=== PATIENT | female | born 1970 | race Caucasian/White ===

== ENCOUNTER 2017-10-12 22:16 | Emergency (ER) | payer OTHER ==
[~2017-10-12] VITALS: Ht 165.1 cm; Wt 72.6 kg
[2017-10-12] MEDS: IV NS 0.9% 1,000 ML BAG IV ONE (22:30)
--- NOTE | 2017-10-12 22:30 | NUR ---
PATIENT AGITATED, REFUSING IV INSERTION.
--- NOTE | 2017-10-12 22:30 | NUR ---
PATIENT BIB. PER PATIENT'S DAUGHTER, PATIENT TOOK 6 ALEVE IN ATTEMPT TO HURT HERSELF. PATIENT VERBALLY ABUSIVE TO STAFF, REFUSES TO ANSWER QUESTIONS
[2017-10-12] MEDS ORDERED: LORAZEPAM INJ 2 MG/ML VIAL ONE (22:32)
[2017-10-12] MEDS: LORAZEPAM INJ 2 MG/ML VIAL IM ONE (22:38)
--- NOTE | 2017-10-12 22:41 | NUR ---
PATIENT MEDICATED ORDERED
[2017-10-12 23:06] LABS: APPEARANCE,URINE CLEAR (CLEAR); BILIRUBIN,URINE NEGATIVE (NEGATIVE); BLOOD, URINE NEGATIVE Ery/uL (NEGATIVE); COLOR,URINE YELLOW (YELLOW); KETONES,URINE NEGATIVE (NEGATIVE); LEUKOCYTE ESTERASE ,URINE NEGATIVE (NEGATIVE); NITRITE, URINE NEGATIVE (NEGATIVE); PROTEIN,URINE NEGATIVE (NEGATIVE); UGLUCOSE NEGATIVE (NEGATIVE); UROBILINOGEN,URINE 0.2 EU/dL (0.2)
[2017-10-12 23:16] LABS: BASOPHILS % (AUTO) 0.8 % (0.0-2.0); CALCIUM, SERUM 7.8 mg/dL (8.5-10.1); CREATININE 0.5 mg/dL (0.6-1.3); EOSINOPHILS % (AUTO) 0.9 % (0.0-6.0); HEMATOCRIT 30 % (33-45); HEMOGLOBIN 9.6 g/dL (11.5-14.8); LYMPHOCYTES # (AUTO) 2.4 /CMM (0.8-4.8); MEAN CORPUSCULAR HEMOGLOBIN 26 PG (26.0-33.0); MEAN CORPUSCULAR HGB CONC 32 g/dl (31.0-36.0); MEAN CORPUSCULAR VOLUME 81 fL (82-100); MONOCYTES # (AUTO) 0.3 /CMM (0.1-1.30); MONOCYTES % (AUTO) 7.2 % (2.0-12.0); NEUTROPHILS # (AUTO) 1.4 /CMM (1.8-8.9); NEUTROPHILS % (AUTO) 33.1 % (43.0-81.0); PLATELET COUNT (AUTO) 442 /CMM (150-450); RDW COEFFICIENT OF VARIATION 19.1 (11.5-15.0); RED BLOOD CELL COUNT(AUTO) 3.69 MIL/uL (4.0-5.2); WHITE BLOOD COUNT (AUTO) 4.1 K/uL (4.3-11.0)
[2017-10-12 23:22] LABS: ALBUMIN 3.2 g/dL (3.4-5.0); BILIRUBIN,TOTAL 0.2 mg/dL (0.2-1.0); SALICYLATE 3.3 mg/dL (2.8-20.0); TOTAL PROTEIN, SERUM 6.7 g/dL (6.4-8.2)
[2017-10-13] MEDS: LORAZEPAM INJ 2 MG/ML VIAL IM ONE (00:52)
[2017-10-13] MEDS: HALOPERIDOL LACTATE INJ 5 MG/ML VIAL IM ONE (00:52)
--- NOTE | 2017-10-13 01:16 | NUR ---
PATIENT'S AT BEDSIDE TO FINISH SAW OPERATOR PATIENT. ALL DISCHARGE PAPERWORK DISCUSSED AND SIGNED.
[2017-10-13 01:20] VITALS: BP 149/88
== END 2017-10-13 01:20 | disposition home or self-care (01) ==
LOC: ER 22:18
DX: T39.311A Poisoning by propionic acid derivatives, accidental (unintentional), initial encounter (principal); F31.9 Bipolar disorder, unspecified; Y92.89 Other specified places as the place of occurrence of the external cause
CPT/HCPCS: 36415; 80048; 80076; 80305; 80329; 81001; 84703; 85025; 96372; 99284; A4606; G0480 ×2; J2060; Z7610; 81000-TC

== ENCOUNTER 2018-08-27 13:24 | Emergency (ER) | payer OTHER ==
[~2018-08-27] VITALS: Ht 167.6 cm; Wt 109.8 kg
--- NOTE | 2018-08-27 13:24 | NUR ---
PT CLINTON FROM THE BUS FOR ETOH INTOX; PT AAOX4, -SOB, NAD NOTED, PT TO BED 6, PENDING MD DAVIS
--- NOTE | 2018-08-27 13:42 | NUR ---
FOOD TRAY ORDERED, DR LUCAS AWARE,SECURITY CALLED TO WAND PATIENT
[2018-08-27 14:02] LABS: BASOPHILS % (AUTO) 0.9 % (0.0-2.0); EOSINOPHILS % (AUTO) 0.7 % (0.0-6.0); HEMATOCRIT 36 % (33-45); HEMOGLOBIN 11.7 g/dL (11.5-14.8); LYMPHOCYTES # (AUTO) 2.7 /CMM (0.8-4.8); LYMPHOCYTES % (AUTO) 56.2 % (20.0-44.0); MEAN CORPUSCULAR HGB CONC 33 g/dl (31.0-36.0); MEAN CORPUSCULAR VOLUME 84 fL (82-100); MONOCYTES # (AUTO) 0.3 /CMM (0.1-1.30); MONOCYTES % (AUTO) 6.8 % (2.0-12.0); NEUTROPHILS # (AUTO) 1.7 /CMM (1.8-8.9); NEUTROPHILS % (AUTO) 35.4 % (43.0-81.0); PLATELET COUNT (AUTO) 316 /CMM (150-450); RED BLOOD CELL COUNT(AUTO) 4.23 MIL/uL (4.0-5.2); WHITE BLOOD COUNT (AUTO) 4.8 K/uL (4.3-11.0)
[2018-08-27 14:09] LABS: CREATININE 0.6 mg/dL (0.6-1.3); POTASSIUM 4.2 mmol/L (3.5-5.1)
[2018-08-27] MEDS ORDERED: GABAPENTIN 100 MG CAPSULE ONE (14:10)
[2018-08-27] MEDS ORDERED: ACETAMINOPHEN ES 500 MG TABLET ONE (14:10)
[2018-08-27] MEDS: GABAPENTIN 100 MG CAPSULE PO ONE (14:26)
[2018-08-27] MEDS: ACETAMINOPHEN ES 500 MG TABLET PO ONE (14:26)
[2018-08-27] MEDS: IV NS 0.9% 500 ML BAG IV ONE (14:26)
--- NOTE | 2018-08-27 17:50 | NUR ---
DR. LUCAS AT BEDSIDE TO REEVALUATE THE PATIENT SHE IS ALERT AND ORIENTED X 4, AMBULATORY WITH STEADY GAIT. SHE IS REQUESTING TO GO HOME VIA BUS
[2018-08-27 18:36] VITALS: BP 141/94
--- NOTE | 2018-08-27 18:43 | NUR ---
IV removed. Catheter intact and site benign. Pressure and 4x4 applied to site. No bleeding noted.
--- NOTE | 2018-08-27 18:48 | NUR ---
UNABLE TO DEPART PATIENT FROM [facility] AT THIS TIME
== END 2018-08-27 18:48 | disposition home or self-care (01) ==
LOC: ER 13:26
DX: F10.129 Alcohol abuse with intoxication, unspecified (principal); R41.82 Altered mental status, unspecified; I10 Essential (primary) hypertension; F31.9 Bipolar disorder, unspecified; Z60.2 Problems related to living alone; Y90.9 Presence of alcohol in blood, level not specified
CPT/HCPCS: 36415; 70450; 80048; 85025; 96360; 99284; J7040

== ENCOUNTER 2018-11-03 17:22 | Emergency (ER) | payer OTHER ==
[~2018-11-03] VITALS: Ht 170.2 cm; Wt 114.3 kg
[2018-11-03] MEDS ORDERED: GABAPENTIN 300 MG CAPSULE ONE (18:52)
[2018-11-03] MEDS: GABAPENTIN 100 MG CAPSULE PO ONE (19:00)
--- NOTE | 2018-11-03 19:05 | NUR ---
pt resting in gurney. no signs of distress noted. pt vital signs stable. will cont to monitor pt.
--- NOTE | 2018-11-03 22:09 | NUR ---
PT AMBULATORY TO THE BATHROOM WITH STEADY GAIT NOTED. PT AAOX4 NO ACUTE DISTRESS NOTED, RESP EVEN AND UNLABORED.
--- NOTE | 2018-11-03 22:31 | NUR ---
Patient discharged to home in stable condition. Written and verbal after care instructions given. Patient verbalizes understanding of instruction. ambulatory with a steady gait noted. pt aaox4 no acute distress noted, resp even and unlabored. advice pt not to drive or operate any machinery due to alcohol intoxication
[2018-11-03 22:34] VITALS: BP 124/73
== END 2018-11-03 22:36 | disposition home or self-care (01) ==
LOC: ER 17:24
DX: M79.605 Pain in left leg (principal); M79.604 Pain in right leg; I10 Essential (primary) hypertension; F31.9 Bipolar disorder, unspecified; F10.10 Alcohol abuse, uncomplicated; E66.9 Obesity, unspecified; Y90.9 Presence of alcohol in blood, level not specified; Z60.2 Problems related to living alone

== ENCOUNTER 2018-12-17 12:37 | Emergency (ER) | payer OTHER ==
[~2018-12-17] VITALS: Ht 167.6 cm; Wt 114.8 kg
[2018-12-17 12:47] VITALS: BP 144/78
--- NOTE | 2018-12-17 13:22 | NUR ---
Patient discharged to home in stable condition. Written and verbal after care instructions given. Patient verbalizes understanding of instruction.
== END 2018-12-17 13:23 | disposition home or self-care (01) ==
LOC: ER 12:37
DX: Z76.0 Encounter for issue of repeat prescription (principal); F31.9 Bipolar disorder, unspecified; I10 Essential (primary) hypertension; Z98.890 Other specified postprocedural states; Z60.2 Problems related to living alone

== ENCOUNTER 2019-11-12 11:48 | Emergency (ER) | payer OTHER ==
[~2019-11-12] VITALS: Ht 170.2 cm; Wt 136.1 kg
--- NOTE | 2019-11-12 12:10 | NUR ---
"Abdominal Pain-mid epigastric. +Nausea/vomiting" Patient a/ox4, breathing even and unlabored, no sob noted, changed into gown, attached to the cardiac cath lab technologist. Needs attended.
[2019-11-12] MEDS ORDERED: ONDANSETRON HCL/PF 4 MG/2 ML VIAL ONE (12:20)
[2019-11-12] MEDS ORDERED: LORAZEPAM INJ 2 MG/ML VIAL ONE (12:21)
[2019-11-12] MEDS ORDERED: ONDANSETRON HCL/PF 4 MG/2 ML VIAL IVP ONE (12:30)
[2019-11-12] MEDS ORDERED: LORAZEPAM INJ 2 MG/ML VIAL IV ONE (12:30)
[2019-11-12 12:33] LABS: BASOPHILS % (AUTO) 0.7 % (0.0-2.0); EOSINOPHILS % (AUTO) 0.1 % (0.0-6.0); HEMATOCRIT 40 % (33-45); HEMOGLOBIN 13.1 g/dL (11.5-14.8); LYMPHOCYTES # (AUTO) 1.1 /CMM (0.8-4.8); LYMPHOCYTES % (AUTO) 19.2 % (20.0-44.0); MEAN CORPUSCULAR HGB CONC 33 g/dl (31.0-36.0); MEAN CORPUSCULAR VOLUME 96 fL (82-100); MONOCYTES # (AUTO) 0.4 /CMM (0.1-1.30); MONOCYTES % (AUTO) 6.1 % (2.0-12.0); NEUTROPHILS # (AUTO) 4.3 /CMM (1.8-8.9); NEUTROPHILS % (AUTO) 73.9 % (43.0-81.0); PLATELET COUNT (AUTO) 186 /CMM (150-450); RED BLOOD CELL COUNT(AUTO) 4.21 MIL/uL (4.0-5.2); WHITE BLOOD COUNT (AUTO) 5.8 K/uL (4.3-11.0)
--- NOTE | 2019-11-12 12:45 | NUR ---
PATIENT RESTING, NO DISTRESS NOTED. VITALS STABLE.
[2019-11-12 12:55] LABS: ALANINE AMINOTRANSFERASE 95 U/L (12-78); ALBUMIN 3.2 g/dL (3.4-5.0); ALKALINE PHOSPHATASE 152 U/L (46-116); ASPARTATE AMINOTRANSFERASE 203 U/L (15-37); BILIRUBIN,DIRECT 0.2 mg/dL (0.0-0.2); BILIRUBIN,TOTAL 0.6 mg/dL (0.2-1.0); CALCIUM, SERUM 7.7 mg/dL (8.5-10.1); CARBON DIOXIDE 23 mmol/L (21-32); CHLORIDE 96 mmol/L (98-107); CREATININE 0.8 mg/dL (0.6-1.3); GLUCOSE 129 mg/dL (74-106); LIPASE 77 U/L (73-393); POTASSIUM 3.7 mmol/L (3.5-5.1); SODIUM SERUM 134 mmol/L (136-145); TOTAL PROTEIN, SERUM 7.3 g/dL (6.4-8.2); UREA NITROGEN, BLOOD 8 mg/dL (7-18)
--- NOTE | 2019-11-12 13:39 | NUR ---
Patient a/ox4, breathing even and unlabored, no sob noted, IV removed. Catheter intact and site benign. Pressure and 4x4 applied to site. No bleeding noted. Patient discharged to home in stable condition. Written and verbal after care instructions given. Patient verbalizes understanding of instruction.
[2019-11-12 13:40] VITALS: BP 134/96
== END 2019-11-12 13:40 | disposition home or self-care (01) ==
LOC: ER 12:03
DX: R11.2 Nausea with vomiting, unspecified (principal); F41.9 Anxiety disorder, unspecified; R10.13 Epigastric pain; I10 Essential (primary) hypertension; F31.9 Bipolar disorder, unspecified; Z98.890 Other specified postprocedural states; Z60.2 Problems related to living alone
CPT/HCPCS: 36415; 80048; 80076; 83690; 84484; 85025; 93005; 96374; 96375; 99284; J2060; J2405

== ENCOUNTER 2020-01-02 10:43 | Emergency (ER) | payer OTHER ==
[~2020-01-02] VITALS: Ht 167.6 cm; Wt 135.2 kg
--- NOTE | 2020-01-02 10:43 | NUR ---
PT BIBRA 909 FROM [facility] C/O N/V AND ALCOHOL WITHDRAWAL. PT IS AAOX4, NOT IN RESPIRATORY DISTRESS, V/S STABLE, KEPT RESTED AND COMFORTABLE. WILL CONTINUE TO MONITOR.
--- NOTE | 2020-01-02 10:54 | NUR ---
SEEN AND EXAMINED BY .
[2020-01-02] MEDS ORDERED: LORAZEPAM 1 MG TABLET PO ONE (11:00)
[2020-01-02] MEDS ORDERED: LORAZEPAM 1 MG TABLET ONE (11:05)
[2020-01-02 11:33] LABS: EOSINOPHILS % (AUTO) 0.2 % (0.0-6.0); HEMATOCRIT 41 % (33-45); HEMOGLOBIN 13.6 g/dL (11.5-14.8); LYMPHOCYTES # (AUTO) 1.7 /CMM (0.8-4.8); LYMPHOCYTES % (AUTO) 34.3 % (20.0-44.0); MEAN CORPUSCULAR HGB CONC 33 g/dl (31.0-36.0); MEAN CORPUSCULAR VOLUME 112 fL (82-100); MONOCYTES # (AUTO) 0.3 /CMM (0.1-1.30); MONOCYTES % (AUTO) 5.1 % (2.0-12.0); NEUTROPHILS # (AUTO) 2.9 /CMM (1.8-8.9); NEUTROPHILS % (AUTO) 59.4 % (43.0-81.0); PLATELET COUNT (AUTO) 345 /CMM (150-450); RED BLOOD CELL COUNT(AUTO) 3.63 MIL/uL (4.0-5.2); WHITE BLOOD COUNT (AUTO) 4.9 K/uL (4.3-11.0)
--- NOTE | 2020-01-02 11:39 | NUR ---
URINE SPECIMEN COLLECTED AND SENT TO LAB.
[2020-01-02 11:41] LABS: CALCIUM, SERUM 8.7 mg/dL (8.5-10.1); CARBON DIOXIDE 24 mmol/L (21-32); CHLORIDE 99 mmol/L (98-107); CREATININE 0.8 mg/dL (0.6-1.3); GLUCOSE 102 mg/dL (74-106); POTASSIUM 3.4 mmol/L (3.5-5.1); SODIUM SERUM 135 mmol/L (136-145); UREA NITROGEN, BLOOD 4 mg/dL (7-18)
[2020-01-02 11:46] LABS: ALANINE AMINOTRANSFERASE 92 U/L (12-78); ALBUMIN 3.2 g/dL (3.4-5.0); ALCOHOL, BLOOD 137 mg/dL (0-0); ALKALINE PHOSPHATASE 146 U/L (46-116); ASPARTATE AMINOTRANSFERASE 201 U/L (15-37); BILIRUBIN,DIRECT 2.2 mg/dL (0.0-0.2); BILIRUBIN,TOTAL 2.8 mg/dL (0.2-1.0); TOTAL PROTEIN, SERUM 7.6 g/dL (6.4-8.2)
[2020-01-02 11:47] LABS: ACETAMINOPHEN 0 ug/ml (10-30)
[2020-01-02 12:01] LABS: APPEARANCE,URINE Clear (CLEAR); BILIRUBIN,URINE LARGE (NEGATIVE); BLOOD, URINE Negative Ery/uL (NEGATIVE); COLOR,URINE Yellow (YELLOW); KETONES,URINE 40 (NEGATIVE); LEUKOCYTE ESTERASE ,URINE Negative (NEGATIVE); NITRITE, URINE Negative (NEGATIVE); PROTEIN,URINE 30 mg/dl (NEGATIVE); UGLUCOSE Negative (NEGATIVE)
[2020-01-02 12:12] LABS: BAND % (MANUAL) 8 % (0.0-5.0); LYMPHOCYTES % (MANUAL) 28 % (16-48); MONOCYTES % (MANUAL) 8 % (0-11.0); NEUTROPHILS % (MANUAL) 56 (42-76)
--- NOTE | 2020-01-02 12:33 | NUR ---
Patient discharged to home in stable condition. Written and verbal after care instructions given. Patient verbalizes understanding of instruction. Pt ambulatory with a steady gait. Pt signed homeless waiver, provided with food and tap card.
[2020-01-02 12:35] VITALS: BP 143/89
[2020-01-02 12:55] LABS: RBC,URINE 0-2 /HPF (0-2); WBC,URINE 0-2 /HPF (0-3)
[2020-01-02 12:56] LABS: BACTERIA,URINE Few /HPF (None Seen); SQUAMOUS EPITHELIAL CELL,UR Moderate /HPF (None Seen)
== END 2020-01-02 12:35 | disposition home or self-care (01) ==
LOC: ER 10:50
DX: F10.20 Alcohol dependence, uncomplicated (principal); R11.2 Nausea with vomiting, unspecified; I10 Essential (primary) hypertension; F31.9 Bipolar disorder, unspecified; Z98.890 Other specified postprocedural states; Z60.2 Problems related to living alone; Y90.6 Blood alcohol level of 120-199 mg/100 ml
CPT/HCPCS: 36415; 80048-TC; 80076-TC; 81000-TC; 85025-TC; G0480

== ENCOUNTER 2020-01-14 09:39 | Emergency (ER) | payer OTHER ==
[~2020-01-14] VITALS: Ht 167.6 cm; Wt 135.2 kg
--- NOTE | 2020-01-14 09:45 | NUR ---
PT BIB SELF C/O ABD PAIN 12/09 STARTED 2 DAYS AGO PER PT. VS CHECKED. AWAITING MD DAVIS.
--- NOTE | 2020-01-14 09:50 | NUR ---
URINE COLLECTED SENT TO LAB
[2020-01-14] MEDS ORDERED: ONDANSETRON HCL/PF 4 MG/2 ML VIAL IVP ONE (10:00)
[2020-01-14] MEDS ORDERED: MORPHINE SULFATE INJ 2 MG/ML DISP.SYRIN IV ONE (10:00)
[2020-01-14 10:07] LABS: BILIRUBIN,URINE LARGE (NEGATIVE); BLOOD, URINE Large Ery/uL (NEGATIVE); COLOR,URINE DARK YELLOW (YELLOW); LEUKOCYTE ESTERASE ,URINE Negative (NEGATIVE); NITRITE, URINE Negative (NEGATIVE); PROTEIN,URINE 30 mg/dl (NEGATIVE); UGLUCOSE Negative (NEGATIVE)
[2020-01-14 10:19] LABS: BACTERIA,URINE Few /HPF (None Seen); RBC,URINE 51-80 /HPF (0-2); SQUAMOUS EPITHELIAL CELL,UR Few /HPF (None Seen); WBC,URINE 0-2 /HPF (0-3)
[2020-01-14 10:35] LABS: BASOPHILS % (AUTO) 0.9 % (0.0-2.0); EOSINOPHILS % (AUTO) 0.3 % (0.0-6.0); HEMATOCRIT 39 % (33-45); HEMOGLOBIN 12.9 g/dL (11.5-14.8); LYMPHOCYTES # (AUTO) 1.2 /CMM (0.8-4.8); LYMPHOCYTES % (AUTO) 27.4 % (20.0-44.0); MEAN CORPUSCULAR HGB CONC 33 g/dl (31.0-36.0); MEAN CORPUSCULAR VOLUME 116 fL (82-100); MONOCYTES # (AUTO) 0.3 /CMM (0.1-1.30); MONOCYTES % (AUTO) 7.7 % (2.0-12.0); NEUTROPHILS # (AUTO) 2.8 /CMM (1.8-8.9); NEUTROPHILS % (AUTO) 63.7 % (43.0-81.0); PLATELET COUNT (AUTO) 329 /CMM (150-450); WHITE BLOOD COUNT (AUTO) 4.4 K/uL (4.3-11.0)
[2020-01-14] MEDS ORDERED: ONDANSETRON HCL/PF 4 MG/2 ML VIAL ONE (10:40)
[2020-01-14] MEDS ORDERED: MORPHINE SULFATE INJ 4 MG/ML DISP.SYRIN ONE (10:40)
[2020-01-14 10:47] LABS: CALCIUM, SERUM 8.6 mg/dL (8.5-10.1); CREATININE 0.6 mg/dL (0.6-1.3); POTASSIUM 3.8 mmol/L (3.5-5.1)
[2020-01-14 10:53] LABS: ALBUMIN 2.7 g/dL (3.4-5.0); BILIRUBIN,DIRECT 4.7 mg/dL (0.0-0.2); BILIRUBIN,TOTAL 5.2 mg/dL (0.2-1.0); TOTAL PROTEIN, SERUM 7.3 g/dL (6.4-8.2)
[2020-01-14] MEDS ORDERED: IOHEXOL-300 100 ML VIAL IV ONE (11:09)
[2020-01-14] MEDS ORDERED: IV NS 0.9% 250 ML IV ONE (11:09)
[2020-01-14] MEDS ORDERED: CT SWABBABLE VALVE TRANS SET 1 EA INFUS.SET MC ONE (11:09)
[2020-01-14] MEDS ORDERED: LORAZEPAM INJ 2 MG/ML VIAL ONE (12:20)
--- NOTE | 2020-01-14 12:26 | NUR ---
CALLED [id number] #[id number]
[2020-01-14] MEDS ORDERED: LORAZEPAM INJ 2 MG/ML VIAL IV ONE (12:30)
--- NOTE | 2020-01-14 12:46 | NUR ---
[facility] 1330[facility]
--- NOTE | 2020-01-14 14:05 | NUR ---
CALLED [id number] NEW ETA IS 15 MINS PER ROSA
--- NOTE | 2020-01-14 14:22 | NUR ---
STILL WAITING FOR AMBULANCE, STATES THAT THEYRE RUNNING LATE
--- NOTE | 2020-01-14 15:06 | NUR ---
CALLED [id number]. THEY SHOULD BE PULLING UP NOW
--- NOTE | 2020-01-14 15:18 | NUR ---
Patient discharged to home in stable condition. Written and verbal after care instructions given. Patient verbalizes understanding of instruction. report given to ic designer custom. IV removed. Catheter intact and site benign. Pressure and 4x4 applied to site. No bleeding noted.
[2020-01-14 15:20] VITALS: BP 130/78
== END 2020-01-14 15:20 | disposition home or self-care (01) ==
LOC: ER 09:45
DX: R10.84 Generalized abdominal pain (principal); I10 Essential (primary) hypertension; E66.8 Other obesity; Z68.42 Body mass index [BMI] 45.0-49.9, adult; Z98.84 Bariatric surgery status; Z60.2 Problems related to living alone
CPT/HCPCS: 36415; 74177; 80048; 80076; 81001; 83690; 84703; 85025; 96374; 96375; 99285; J2060; J2270; J2405; J7050; Q9967

== ENCOUNTER 2020-04-30 10:41 | Inpatient (IN) | payer OTHER ==
[~2020-04-30] VITALS: Ht 167.6 cm; Wt 136.5 kg
--- NOTE | 2020-04-30 11:00 | NUR ---
[id number], from retirement, c/o right rib pain x 2 weeks, and diarrhea x 2 days. Takes advil but not helping. On room air, breathing evenly and unlabored, connected to the monitor and pulse ox. kept comfortable, will continue to monitor accordingly.
--- NOTE | 2020-04-30 11:01 | NUR ---
Move sheet submitted and called for bed.
[2020-04-30 11:13] LABS: EOSINOPHILS % (AUTO) 0.2 % (0.0-6.0); HEMOGLOBIN 10.2 g/dL (11.5-14.8); LYMPHOCYTES # (AUTO) 0.7 /CMM (0.8-4.8); MONOCYTES % (AUTO) 10.4 % (2.0-12.0)
[2020-04-30 11:16] LABS: BASOPHILS % (AUTO) 0.7 % (0.0-2.0); HEMATOCRIT 31 % (33-45); LYMPHOCYTES % (AUTO) 12.5 % (20.0-44.0); MEAN CORPUSCULAR HGB CONC 33 g/dl (31.0-36.0); MEAN CORPUSCULAR VOLUME 120 fL (82-100); MONOCYTES # (AUTO) 0.6 /CMM (0.1-1.30); NEUTROPHILS % (AUTO) 76.2 % (43.0-81.0); PLATELET COUNT (AUTO) 256 /CMM (150-450); RED BLOOD CELL COUNT(AUTO) 2.56 MIL/uL (4.0-5.2); WHITE BLOOD COUNT (AUTO) 5.3 K/uL (4.3-11.0)
--- NOTE | 2020-04-30 11:20 | NUR ---
US AT BEDSIDE
[2020-04-30 11:28] LABS: SERUM AMMONIA 47 umol/L (11-32)
[2020-04-30 11:40] LABS: ALANINE AMINOTRANSFERASE 70 U/L (12-78); ALBUMIN 1.9 g/dL (3.4-5.0); ALKALINE PHOSPHATASE 216 U/L (46-116); ASPARTATE AMINOTRANSFERASE 351 U/L (15-37); BILIRUBIN,DIRECT 30.1 mg/dL (0.0-0.2); BILIRUBIN,TOTAL 34.5 mg/dL (0.2-1.0); CALCIUM, SERUM 7.6 mg/dL (8.5-10.1); CARBON DIOXIDE 21 mmol/L (21-32); CHLORIDE 99 mmol/L (98-107); CREATININE 0.9 mg/dL (0.6-1.3); GLUCOSE 98 mg/dL (74-106); LIPASE 1159 U/L (73-393); SODIUM SERUM 137 mmol/L (136-145); TOTAL PROTEIN, SERUM 5.5 g/dL (6.4-8.2); UREA NITROGEN, BLOOD 20 mg/dL (7-18)
[2020-04-30 11:43] LABS: POTASSIUM 2.8 mmol/L (3.5-5.1)
[2020-04-30] MEDS ORDERED: LAMO100T2 PO (11:47)
[2020-04-30] MEDS ORDERED: TRAM50TA2 PO (11:47)
[2020-04-30] MEDS ORDERED: SERT25TA PO (11:47)
[2020-04-30] MEDS ORDERED: ATEN25TA PO (11:47)
[2020-04-30] MEDS ORDERED: TRAZ-182 PO (11:47)
[2020-04-30] MEDS ORDERED: GABA600T12 PO (11:47)
[2020-04-30] MEDS ORDERED: LORA-259 PO (11:47)
--- NOTE | 2020-04-30 11:49 | NUR ---
got bed 313-1
[2020-04-30] MEDS ORDERED: IV D5/ 0.9% NACL 1,000 ML IV ONE (12:00)
[2020-04-30] MEDS ORDERED: POTASSIUM CL. PREMIX PERIPHER. 50 ML ONE (12:02)
[2020-04-30] MEDS ORDERED: POTASSIUM CL. PREMIX PERIPHER. 150 ML ONE (12:03)
[2020-04-30] MEDS: POTASSIUM CL. PREMIX PERIPHER. 50 ML IV SCH ×4 (12:12→15:29)
--- NOTE | 2020-04-30 12:13 | NUR ---
PT TO RADIOLOGY
--- NOTE | 2020-04-30 12:30 | NUR ---
IV D5ND 100ML @ 75MLHR HOUR STRATED PER MD ORDERED. IV SITE L AC 18G ENDTIME CONTINUOUS INFUSION. UNABLE TO MARILEE ON Play[employer].
--- NOTE | 2020-04-30 13:52 | NUR ---
lab called pt covid result negative (-).
--- NOTE | 2020-04-30 14:07 | NUR ---
REPORT GIVEN TO RUBEN TENORIO FOR MARIAELENA
--- NOTE | 2020-04-30 14:22 | NUR ---
PT TRANSPOERTED TO UNIT ON GURNEY WITH EMT AND RN AT BEDSIDE W/ ACLS PROTOCOL. NAD NOTED DURING TRANSPORT
[2020-04-30] MEDS ORDERED: ONDANSETRON HCL/PF 4 MG/2 ML VIAL IVP PRN (14:30)
[2020-04-30] MEDS ORDERED: MAGNESIUM HYDROXIDE 30 ML UDC PO PRN (14:30)
[2020-04-30] MEDS ORDERED: MAG HYDROX/AL HYDROX/SIMETH 30 ML UDC PO PRN (14:30)
[2020-04-30] MEDS ORDERED: Z GUARD REMEDY 2 OZ OINT TP PRN (14:30)
[2020-04-30] MEDS ORDERED: ZOLPIDEM TARTRATE 5 MG TABLET PO PRN (14:30)
[2020-04-30] MEDS ORDERED: ACETAMINOPHEN 325 MG TABLET PO PRN (14:30)
--- NOTE | 2020-04-30 14:30 | NUR ---
CUMULATIVE EFFECTS ANALYSTDEPLOYMENT ENGINEER NOTES RECEIVED PT FROM ED TRANSPORTED BY [facility] TO UNIT WITH ACLS PROTOCOL IN PLACE AT THIS TIME. AOX4, ABLE TO MAKE NEEDS KNOWN. LUNGS ARE CLEAR TO AUSCULTATION, ABDOMEN IS SOFT, NON TENDER, ACTIVE KVNG SOUNDS AUSCULTATED IN ALL FOUR QUADRANTS, PULSES ARE PRESENT BILATERALLY, GOOD CIRCULATION NOTED, CAPILLARY REFILL 3 SECONDS, SKIN IS WARM TO TOUCH, SKIN IS INTACT WITH BRUISES NOTED IN LEFT/RIGHT ARM, LEFT SIDE BACK AND ABDOMEN. PICTURES OF BRUISES TAKEN AND FILED IN CHART. BELONGINGS ACCOUNTED FOR, SIGNED BY PT, TELECASTING ENGINEER/NURSE AND LEFT WITH PT AT BEDSIDE PER PT REQUEST. IV ACCESS NOTED IN RAC G#18 AND LEFT WRIST, BOTH INTACT, PATENT AND FLUSHING WELL. PT ON EXTERNAL TELE WAREHOUSEMAN READING SR 89. PT REORIENT TO THE ROOM AND TO USE CALL LIGHT TO ASK FOR ASSISTANCE. PT VERBALIZE UNDERSTANDING. ASPIRATIONS, SEIZURE AND SAFETY PRECAUTIONS IN PLACE AND MAINTAINED AT ALL TIMES. BED IN LOWEST LOCKED POSITION, SIDE RAILS UP AND PADDED, HOB ELEVATED, TABLE AND CALL LIGHT WITHIN REACH. WILL CONTINUE TO MONITOR
[2020-04-30 15:58] LABS: BAND % (MANUAL) 4 % (0.0-5.0); EOSINOPHILS % (MANUAL) 1 % (0-4); LYMPHOCYTES % (MANUAL) 19 % (16-48); MONOCYTES % (MANUAL) 13 % (0-11.0); NEUTROPHILS % (MANUAL) 61 (42-76); REACTIVE LYMPHOCYTES 2 % (0-0)
[2020-04-30 16:00] VITALS: BP 104/52
[2020-04-30] MEDS ORDERED: LORAZEPAM INJ 2 MG/ML VIAL IV PRN (16:00)
[2020-04-30] MEDS: AZITHROMYCIN 500 MG in IV D5W 250 ML IV SCH (16:59)
[2020-04-30] MEDS ORDERED: CEFTRIAXONE 1 G in IV D5W 50 ML IV SCH (17:00)
[2020-04-30] MEDS: HYDROCODONE/APAP 5/325MG TABLET PO PRN ×2 (17:17→22:02)
--- NOTE | 2020-04-30 17:17 | NUR ---
PT C/O OF ACHING RIGHT RIB PAIN ON 09/08. VS WNL. PT NOTED RESTLESS, MOANING AND IRRITABLE. PER PT REQUEST NORCO 5-325MG PO Q4H PRN WAS ADMINISTERED AT THIS TIME. WILL CONTINUE TO MONITOR
[2020-04-30] MEDS ORDERED: INFLUENZA VACCINE 2020-21 0.5 ML DISP.SYRIN IM ONE (17:30)
--- NOTE | 2020-04-30 17:32 | NUR ---
FLU VACCINE ADMINISTERED IN LEFT DELTOID AT THIS TIME. PT TOLERATED WELL. WILL CONTINUE TO MONITOR
--- NOTE | 2020-04-30 18:32 | NUR ---
ISRAEL WOOD, PT'S DAUGHTER CALLED AND SPOKE WITH PT. PT REQUESTED TO ADD ISRAEL RESPONSIBLE TEMPLATE CLERK. WILL CONTINUE WITH PLAN OF CARE
--- NOTE | 2020-04-30 19:43 | NUR ---
RN CLOSING NOTES PT AWAKE IN BED COMFORTABLY AT THIS TIME. PT REMAINED STABLE THROUGHOUT SHIFT. ALL CARE, NEED, MEDICATIONS AND TREATMENT ADMINISTERED ANTICIPATED PER ORDER.PAIN MANAGEMENT ADMINISTERED. ASPIRATION, SEIZURE AND SAFETY PRECAUTION IN PLACE AND MAINTAINED AT ALL TIMES. BED IN LOWEST LOCKED POSITION, HOB ELEVATED, SIDE RAILS UP AND PADDED, CALL LIGHT AND TABLE WITHIN REACH. ENDORSED TO RUBEN ERVIN RADIO REPAIRER DOMESTIC FOR MARIAELENA
[2020-04-30 20:00] VITALS: BP 108/56
[2020-04-30] MEDS: MEROPENEM 500 MG in IV NS 0.9% 50 ML IV SCH (21:49)
--- NOTE | 2020-04-30 22:00 | NUR ---
RN OPENING NOTES RECEIVED PT IN BED. AO X4 PT ON ROOM AIR TOLERATING WELL. NO RESP DISTRESS NO SOB NOTED. PT ON TELE MONITOR NSR HR 84 AT THIS TIME. IV SITE FLUSHED. NO S/S OF INFILTRATION NOTED. PT IS YELLOW IN COLOR, EYES JAUNDICE. NEEDS ATTENDED. SAFETY MEASURES IN PLACE FOR R/O COVID SEIZURE ASPIRATION PRECAUTION. PT HOB ELEVATED. SIDE RAILS UP X3. BED LOCKED IN LOWEST POSITION WITH ALARM ON. CALL LIGHT WITHIN REACH. WILL CONT TO MONITOR.
[2020-04-30 22:56] LABS: BILIRUBIN,URINE LARGE (NEGATIVE); COLOR,URINE BROWN (YELLOW); LEUKOCYTE ESTERASE ,URINE TRACE (NEGATIVE); NITRITE, URINE POSITIVE (NEGATIVE); PROTEIN,URINE 100 mg/dl (NEGATIVE); UGLUCOSE 100 MG/DL mg/dL (NEGATIVE)
--- NOTE | 2020-04-30 23:00 | NUR ---
PT FRANK CALLED, PT NOTIFIED. SAID WILL CALL HIM DURING THE DAY.
--- NOTE | 2020-04-30 23:30 | NUR ---
RN NOTE RECEIVED PT FROM [facility]. PT A0X4. NO DISTRESS NOTED. SINUS RHYTHM ON TELE. PT IS JAUNDICE. PT COMPLAINED OF RIGHT SIDE/ABDOMEN PAIN, PT JUST HAD NORCO AN HOUR AGO. IV ON LEFT WRIST AND RAC PATENT AND INTACT. NO SIGNS OF INFECTION NOTED. VS BP 108/46, RR 22 T 98.4 HR 91. ALL SAFETY MEASURES IMPLEMENTED PER PROTOCOL CALL LIGHT WITHIN REACH. BED LOCKED IN LOWEST POSITION. SIDE RAILS UP. WILL KEEP IN A COMFORTABLE AND PAIN FREE ENVIRONMENT.
[2020-04-30] MEDS: IV D5/0.45 NACL 1,000 ML IV PRN (23:34)
--- NOTE | 2020-04-30 23:52 | NUR ---
REPORT GIVEN TO ZACARIAS MIRANDA FOR CONTINUATION OF CARE
--- NOTE | 2020-04-30 23:52 | NUR ---
PT TRANSFERRED TO ROOM 118 VIA ACLS PROTOCOL IN STABLE CONDITION. NO DISTRESS NOTED. BELONGINGS WITH PT AND ACCOUNTED FOR.
[2020-04-30 23:59] LABS: BACTERIA,URINE 2+ /HPF (None Seen); MUCUS,URINE Few /LPF (None Seen); SQUAMOUS EPITHELIAL CELL,UR Many /HPF (None Seen); URINE AMORPHOUS PHOSPHATES Many /HPF (None Seen)
[2020-05-01] VITALS: BP 108/46
--- NOTE | 2020-05-01 00:57 | NUR ---
RN NOTE PT STILL COMPLAINING OF 7/10 RIGHT SIDE/FLANK PAIN. MD MADE AWARE FOR PT IS NPO. SPECIAL EDUCATION PROFESSIONAL DAVID KHAN ORDERED ONE TIME MORPHIPE 1MG IVP FOR PAIN. ORDER NOTED AND CARRIED OUT.
[2020-05-01] MEDS ORDERED: MORPHINE SULFATE INJ 2 MG/ML DISP.SYRIN IVP ONE (01:00)
[2020-05-01 04:00] VITALS: BP 115/66
[2020-05-01] MEDS: MEROPENEM 500 MG in IV NS 0.9% 50 ML IV SCH ×3 (05:06→20:40)
[2020-05-01 06:35] LABS: BASOPHILS % (AUTO) 0.7 % (0.0-2.0); EOSINOPHILS % (AUTO) 0.6 % (0.0-6.0); HEMATOCRIT 28 % (33-45); HEMOGLOBIN 9.8 g/dL (11.5-14.8); LYMPHOCYTES # (AUTO) 0.8 /CMM (0.8-4.8); LYMPHOCYTES % (AUTO) 13.9 % (20.0-44.0); MEAN CORPUSCULAR HGB CONC 35 g/dl (31.0-36.0); MEAN CORPUSCULAR VOLUME 116 fL (82-100); MONOCYTES # (AUTO) 0.5 /CMM (0.1-1.30); MONOCYTES % (AUTO) 8.7 % (2.0-12.0); NEUTROPHILS # (AUTO) 4.2 /CMM (1.8-8.9); NEUTROPHILS % (AUTO) 76.1 % (43.0-81.0); PLATELET COUNT (AUTO) 266 /CMM (150-450); RED BLOOD CELL COUNT(AUTO) 2.42 MIL/uL (4.0-5.2); WHITE BLOOD COUNT (AUTO) 5.5 K/uL (4.3-11.0)
--- NOTE | 2020-05-01 06:57 | NUR ---
RN NOTES PT ABLE TO MAKE NEEDS KNOWN, AMBULATES TO RESTROOM. REMAIN SR ON TELE WITH HR OF 90. NO DISTRESS NOTED. STILL COMPLAINS OF RIGHT SIDE PAIN, EXPLAINED THAT JUNK DEALER ONLY ORDERED ONE TIME PAIN MED IV AND STRICT NPO DUE TO PANCREATITIS. ASSISTED IN REPOSITIONING TO RELIEVE PAIN. CALL LIGHT WITHIN REACH AT ALL TIMES. WILL ENDORSE TO NEXT SHIFT NURSE FOR MARIAELENA.
[2020-05-01 07:16] LABS: CHOLESTEROL 94 mg/dL (<200); LDL 102 mg/dL (0-99); TRIGLYCERIDES 521 mg/dL (30-150)
[2020-05-01 07:17] LABS: BAND % (MANUAL) 4 % (0.0-5.0); LYMPHOCYTES % (MANUAL) 14 % (16-48); MONOCYTES % (MANUAL) 16 % (0-11.0); NEUTROPHILS % (MANUAL) 66 (42-76)
[2020-05-01 07:27] LABS: CALCIUM, SERUM 7.9 mg/dL (8.5-10.1); CARBON DIOXIDE 24 mmol/L (21-32); CHLORIDE 102 mmol/L (98-107); CREATININE 0.9 mg/dL (0.6-1.3); GLUCOSE 109 mg/dL (74-106); LIPASE 834 U/L (73-393); MAGNESIUM 2.1 mg/dL (1.8-2.4); PHOSPHORUS 1.2 mg/dL (2.5-4.9); POTASSIUM 2.9 mmol/L (3.5-5.1); SODIUM SERUM 138 mmol/L (136-145); UREA NITROGEN, BLOOD 15 mg/dL (7-18)
[2020-05-01] MEDS ORDERED: PANTOPRAZOLE 40 MG TABLET.DR PO SCH (07:30)
--- NOTE | 2020-05-01 07:30 | NUR ---
RN CLOSING NOTES Patient
[2020-05-01 07:43] LABS: HDL CHOLESTEROL < 10 mg/dL (40-60)
[2020-05-01 08:00] VITALS: BP 114/78
[2020-05-01] MEDS: PANTOPRAZOLE 40 MG VIAL IV SCH (09:08)
[2020-05-01 12:00] VITALS: BP 99/48
[2020-05-01] MEDS ORDERED: POTASSIUM CL. PREMIX PERIPHER. 50 ML IV SCH ×2 (12:00→17:30)
[2020-05-01] MEDS ORDERED: Sodium Phosphate 15 MMOL in IV NS 0.9% 245 ML IV SCH (12:00)
[2020-05-01] MEDS: POTASSIUM CL. PREMIX PERIPHER. 50 ML IV SCH ×4 (12:44→15:35)
[2020-05-01] MEDS: HYDROCODONE/APAP 5/325MG TABLET PO PRN (12:59)
--- NOTE | 2020-05-01 14:05 | NUR ---
pcr swab brought to lab.
[2020-05-01] MEDS: POTASSIUM PHOSPHATE MM 7.5 MMOL in IV NS 0.9% 100 ML IV SCH ×3 (15:35→19:37)
[2020-05-01 16:00] VITALS: BP 99/48
[2020-05-01] MEDS: AZITHROMYCIN 500 MG in IV D5W 250 ML IV SCH (17:59)
--- NOTE | 2020-05-01 19:20 | NUR ---
RN OPENING NOTE RECEIVED PATIENT IN BED RESTING ALERT ORIENTED X3 VERBALLY RESPONSIVE ON ROOM AIR O2:97% AMBULATORY WITH ASSIST TO BATHROOM CONTINENT TO BOWEL/BLADDER IV SITE IS ON LEFT UPPER ARM MIDLINE INTACT PATENT,KEEP CALL LIGHT WITHIN REACH,KEEP BED IN LOW POSITION AND LOCKED SAFETY MEASURE IMPLEMENT CONTINUE TO MONITOR.
[2020-05-01 20:00] VITALS: BP 113/77
--- NOTE | 2020-05-01 20:10 | NUR ---
FUNERAL HOME DIRECTOR NOTES Patient is alert and oriented. Patient is on room air and in no acute respiratory distress. Patient assisted to bathroom x3 during shift. Midline to left AC patent and no s/s of bleeding. Patient given 4 bags of 10 meq KCL during shift and 1 bag of potassium phosphate and hung another bag and endorsed to next shift for follow up regarding second bag. Patient's left wrist and right ac IV removed due to infiltration. Endorsed to next shift for MARIAELENA. Bed is in lowest and locked position.Call light with in reach.
[2020-05-02] VITALS: BP 112/78
[2020-05-02] MEDS: HYDROCODONE/APAP 5/325MG TABLET PO PRN ×2 (01:45→10:00)
[2020-05-02 04:00] VITALS: BP 99/53
[2020-05-02] MEDS: MEROPENEM 500 MG in IV NS 0.9% 50 ML IV SCH ×3 (04:17→20:26)
[2020-05-02] MEDS: IV D5/0.45 NACL 1,000 ML IV PRN (05:03)
--- NOTE | 2020-05-02 06:32 | NUR ---
RN CLOSING NOTE PATIENT REMAINS ON ALERT ORIENTED X3 VERBALLY ON ROOM AIR O2:97% NO SOB NOT ACUTE DISTRESS NOTED,AMBULATORY WITH ASSIST CONTINENT TO BOWEL/BLADDER IV SITE IS ON LEFT UPPER ARM MID LINE INTACT PATENT,ALL DUE MEDS GIVEN MD ORDERED KEPT CLEAN AND DRY ALL THE TIME,KEPT COMFORTABLE,KEPT CALL LIGHT WITHIN REACH,SAFETY MEASURE IMPLEMENTED,ENDORSE NEXT COMING SHIFT FOR CONTINUATION OF CARE.
[2020-05-02 06:34] LABS: BASOPHILS % (AUTO) 0.5 % (0.0-2.0); EOSINOPHILS % (AUTO) 0.3 % (0.0-6.0); HEMATOCRIT 29 % (33-45); LYMPHOCYTES % (AUTO) 10.9 % (20.0-44.0); MEAN CORPUSCULAR HGB CONC 34 g/dl (31.0-36.0); MEAN CORPUSCULAR VOLUME 117 fL (82-100); MONOCYTES # (AUTO) 0.6 /CMM (0.1-1.30); MONOCYTES % (AUTO) 6.6 % (2.0-12.0); NEUTROPHILS # (AUTO) 7.5 /CMM (1.8-8.9); NEUTROPHILS % (AUTO) 81.7 % (43.0-81.0); PLATELET COUNT (AUTO) 291 /CMM (150-450); RED BLOOD CELL COUNT(AUTO) 2.48 MIL/uL (4.0-5.2); WHITE BLOOD COUNT (AUTO) 9.1 K/uL (4.3-11.0)
[2020-05-02 07:05] LABS: CALCIUM, SERUM 7.6 mg/dL (8.5-10.1); CREATININE 0.7 mg/dL (0.6-1.3); MAGNESIUM 2.2 mg/dL (1.8-2.4); PHOSPHORUS 1.3 mg/dL (2.5-4.9); POTASSIUM 3.4 mmol/L (3.5-5.1)
[2020-05-02] MEDS: PANTOPRAZOLE 40 MG VIAL IV SCH (07:33)
--- NOTE | 2020-05-02 07:47 | NUR ---
RN OPENING NOTE PATIENT IS IN BED WITH HOB FLAT. PATIENT IS CURRENTLY ON ROOM AIR WITH NO SIGNS OF LABORED BREATHING. CURRENTLY AOX4. CONRAD MIDLINE IS PATENT, INTACT, AND HAS NO SIGNS OF INFILTRATION. PATIENT IS ABLE TO WALK TO BATHROOM WITH MINIMAL ASSIST. GUARD RAILS ARE PADDED. BED IS LOCKED IN THE LOWEST POSITION, CALL TROTTER WITHIN REACH, 3 GUARD RAILS RAISED, AND ALL HOSPITAL SAFETY PRECAUTIONS ARE BEING FOLLOWED. WILL CONTINUE TO MONITOR.
[2020-05-02 08:00] VITALS: BP 95/37
[2020-05-02] MEDS ORDERED: LORAZEPAM 1 MG TABLET PO PRN (09:30)
[2020-05-02] MEDS ORDERED: TRAMADOL HCL 50 MG TABLET PO PRN (09:30)
[2020-05-02] MEDS ORDERED: K PHOS NEUTRAL 250 MG TABLET PO ONE (11:00)
[2020-05-02] MEDS: LamoTRIgine 100 MG TABLET PO SCH (12:03)
[2020-05-02] MEDS: POTASSIUM CL. PREMIX PERIPHER. 50 ML IV SCH ×2 (12:03→13:16)
[2020-05-02 12:14] LABS: BAND % (MANUAL) 1 % (0.0-5.0); LYMPHOCYTES % (MANUAL) 13 % (16-48); MONOCYTES % (MANUAL) 5 % (0-11.0); NEUTROPHILS % (MANUAL) 81 (42-76)
[2020-05-02] MEDS: GABAPENTIN 300 MG CAPSULE PO SCH ×2 (13:16→17:01)
--- NOTE | 2020-05-02 16:30 | NUR ---
Advertising Executive Note: Advertising Executive consult was requested for this 49 year old female patient due to homelessness. SW met with the patient at bedside to conduct an evaluation. Patient was not receptive to speaking with this social worker palliative care. Patient informed the SW that she is "tired and would not like to be bothered right now." Promotions Officer assured the pt that it would only take a few minutes and the pt began getting agitated. SW asked if she would like to return to the [facility] where she was residing and she stated "yes." SW left the room at this point before agitating the pt further. Patient appears to have an impaired insight and judgment and patients impulse control is poor. Plan: Patient would [facility] to [facility] after discharge and so SW called and was redirected to the [facility] ([phone]) where the SW spoke to Korin who confirmed that the pt can return at the time of discharge. SW also provided the patient with homeless community resources. SW provided patient with a copy of the [facility] homeless directory which provides information on locations for hot meals, sack lunches, food pantries, and showers. SW provided an additional list of mental health clinics: [facility] [address] [place] [address] ([phone]); [facility] [address] [place] [address] ([phone]); a list of medical clinics; [facility] [address], [place]. [place], ; [facility] [address], [place]. SW Provided [facility] [address] [place] [address]: ([phone]). Patient was provided with a brief substance abuse intervention and referred to the following substance abuse programs: [facility] Substance Abuse Self-helpline ([phone]); [facility] [address] [place] [address] ([phone]); [facility] [address] [place] [address] ([phone]); [facility] ([phone]); [facility] ([phone]); [facility] ([phone]); [facility] ([phone]). SW to remain available to the patient as needed.
--- NOTE | 2020-05-02 16:40 | NUR ---
Family Contact: FRANCI spoke with the pts sister, Bonnie ([phone]), who stated that the pt has a had a long history of burning her bridges with her family and she has a long history of alcohol abuse. She states that the pt gets into toxic relationships and is currently in one. She stated that the pt has a police officer booking, Jack Ramirez ([phone]), who wanted information. FRANCI stated that she would call.
--- NOTE | 2020-05-02 16:42 | NUR ---
Kiln Transfer Operator Contact: FRANCI contacted the pts campus safety officer, Jack Ramirez ([phone]), who stated that he has known the pt for a long time and she makes poor decisions. He stated that she does a good job of keeping him involved in her life. SW stated that she can return to the [facility] where she wants to return and the campus safety officer confirmed that would be an acceptable discharge plan.
[2020-05-02] MEDS ORDERED: TRAZODONE 50 MG TABLET PO SCH (18:00)
[2020-05-02 18:18] VITALS: BP 116/66
--- NOTE | 2020-05-02 19:26 | NUR ---
RN CLOSING NOTE PATIENT IS IN BED WITH HOB FLAT. PATIENT IS CURRENTLY ON ROOM AIR WITH NO SIGNS OF LABORED BREATHING. CURRENTLY AOX4. CONRAD MIDLINE IS PATENT, INTACT, AND HAS NO SIGNS OF INFILTRATION. PATIENT IS ABLE TO WALK TO BATHROOM WITH MINIMAL ASSIST. GUARD RAILS ARE PADDED. BED IS LOCKED IN THE LOWEST POSITION, CALL TROTTER WITHIN REACH, 3 GUARD RAILS RAISED, AND ALL HOSPITAL SAFETY PRECAUTIONS ARE BEING FOLLOWED. WILL ENDORSE TO LEAD REFINER RN.
[2020-05-02 20:00] VITALS: BP 135/75
[2020-05-03 04:00] VITALS: BP 101/48
[2020-05-03] MEDS: MEROPENEM 500 MG in IV NS 0.9% 50 ML IV SCH (05:16)
[2020-05-03] MEDS: IV D5/0.45 NACL 1,000 ML IV PRN (05:21)
[2020-05-03 05:53] LABS: BASOPHILS # (AUTO) 0.1 /CMM (0.0-0.2); BASOPHILS % (AUTO) 0.6 % (0.0-2.0); EOSINOPHILS % (AUTO) 0.6 % (0.0-6.0); HEMATOCRIT 30 % (33-45); HEMOGLOBIN 9.9 g/dL (11.5-14.8); LYMPHOCYTES # (AUTO) 1.2 /CMM (0.8-4.8); LYMPHOCYTES % (AUTO) 9.5 % (20.0-44.0); MEAN CORPUSCULAR HGB CONC 34 g/dl (31.0-36.0); MEAN CORPUSCULAR VOLUME 118 fL (82-100); MONOCYTES # (AUTO) 0.9 /CMM (0.1-1.30); MONOCYTES % (AUTO) 6.6 % (2.0-12.0); NEUTROPHILS # (AUTO) 10.7 /CMM (1.8-8.9); NEUTROPHILS % (AUTO) 82.7 % (43.0-81.0); PLATELET COUNT (AUTO) 322 /CMM (150-450); RED BLOOD CELL COUNT(AUTO) 2.51 MIL/uL (4.0-5.2)
[2020-05-03 06:13] LABS: CALCIUM, SERUM 8.1 mg/dL (8.5-10.1); CREATININE 0.7 mg/dL (0.6-1.3); MAGNESIUM 2.1 mg/dL (1.8-2.4); POTASSIUM 3.7 mmol/L (3.5-5.1)
[2020-05-03] MEDS: GABAPENTIN 300 MG CAPSULE PO SCH (08:58)
[2020-05-03] MEDS: PANTOPRAZOLE 40 MG VIAL IV SCH (08:58)
[2020-05-03] MEDS ORDERED: ATENOLOL 25 MG TABLET PO SCH (09:00)
[2020-05-03] MEDS ORDERED: SERTRALINE HCL 25 MG TABLET PO SCH (09:00)
[2020-05-03] MEDS ORDERED: LEVO500T90 PO (09:32)
[2020-05-03] MEDS: HYDROCODONE/APAP 5/325MG TABLET PO PRN (09:40)
[2020-05-03] MEDS: LamoTRIgine 100 MG TABLET PO SCH (09:40)
[2020-05-03 12:00] VITALS: BP 141/60
--- NOTE | 2020-05-03 13:00 | NUR ---
PATIENT DISCHARGED VIA PRIVATE VEHICLE. ALL BELONGINGS WITH PATIENT AND SIGNED. VITALS CHARTED. PATIENT GIVEN AND VERBALIZES UNDERSTANDING OF DC INSTRUCTIONS AND NEW PRESCRIPTION. PT ESCORTED TO VEHICLE VIA WHEELCHAIR
[2020-05-03] MEDS ORDERED: NEUTRA PHOS 1 POWD.PACKET PO ONE (14:30)
== END 2020-05-03 14:00 | disposition home or self-care (01) | DRG 282 ==
LOC: ER 10:41 → TELE 11:53 → TELE1 23:01 → MEDSG1 05-01 08:19
PROVIDERS: ADMIT Student in an Organized Health Care Education/Training Program; ATTEND Internal Medicine
DX: K85.20 Alcohol induced acute pancreatitis without necrosis or infection (principal); J18.9 Pneumonia, unspecified organism; E43 Unspecified severe protein-calorie malnutrition; E86.0 Dehydration; D64.9 Anemia, unspecified; Z68.42 Body mass index [BMI] 45.0-49.9, adult; E66.01 Morbid (severe) obesity due to excess calories; E87.2 Acidosis; E87.6 Hypokalemia; I10 Essential (primary) hypertension; F31.9 Bipolar disorder, unspecified; Z20.822 Contact with and (suspected) exposure to COVID-19; Z98.84 Bariatric surgery status; R74.01 Elevation of levels of liver transaminase levels; E88.09 Other disorders of plasma-protein metabolism, not elsewhere classified; N39.0 Urinary tract infection, site not specified; F41.9 Anxiety disorder, unspecified; Z59.0 Homelessness; F10.188 Alcohol abuse with other alcohol-induced disorder; Y90.3 Blood alcohol level of 60-79 mg/100 ml
CPT/HCPCS: 36415; 71045-TC; 76700-TC; 80048-TC; 80061-TC; 80076-TC; 81001; 82140-TC; 82962-TC; 83605-TC; 83690-TC; 83735-TC; 84100-TC; 84703-TC; 85025-TC; 85730-TC; 87040-TC; 87081-TC; 87086-TC; A9563; C9113; G0378; G0480; J0456; J0696; J2185; J2270; J3480; J3490; J7030; J7042; J7050; J7060; Q2036; U0003

== ENCOUNTER 2020-05-06 17:42 | Emergency (ER) | payer OTHER ==
[~2020-05-06] VITALS: Ht 167.6 cm; Wt 137.0 kg
[~2020-05-06 17:42] MED LIST: ATEN25TA PO; GABA600T12 PO; LAMO100T2 PO; LORA-259 PO; SERT25TA PO; TRAM50TA2 PO; TRAZ-182 PO
[2020-05-06] MEDS ORDERED: ONDANSETRON HCL/PF 4 MG/2 ML VIAL IVP ONE (18:00)
[2020-05-06] MEDS ORDERED: IV NS 0.9% 1,000 ML BAG IV ONE (18:00)
[2020-05-06] MEDS ORDERED: LORAZEPAM INJ 2 MG/ML VIAL IV ONE (18:00)
--- NOTE | 2020-05-06 18:23 | NUR ---
CLINTON 102 FROM [facility] C/O LOWER ABDOMINAL PAIN AND VOMITING. PT AAOX4, VSS. RR EVEN & UNLABORED. DENIES CP, SOB, DIZZINESS AT THIS TIME. PT SEEN & EVAL'D BY LUCIANO MYERS. WILL CONT TO MONITOR.
[2020-05-06] MEDS ORDERED: ONDANSETRON HCL/PF 4 MG/2 ML VIAL ONE (18:27)
[2020-05-06] MEDS ORDERED: LORAZEPAM INJ 2 MG/ML VIAL ONE (18:28)
[2020-05-06] MEDS ORDERED: LEVO500T90 PO (18:28)
[2020-05-06 19:34] LABS: CALCIUM, SERUM 8.5 mg/dL (8.5-10.1); CREATININE 0.8 mg/dL (0.6-1.3); POTASSIUM 3.5 mmol/L (3.5-5.1)
[2020-05-06 19:39] LABS: ALBUMIN 1.5 g/dL (3.4-5.0); BILIRUBIN,DIRECT 18.3 mg/dL (0.0-0.2); BILIRUBIN,TOTAL 23.2 mg/dL (0.2-1.0)
[2020-05-06 20:00] LABS: BASOPHILS # (AUTO) 0.2 /CMM (0.0-0.2); BASOPHILS % (AUTO) 1.3 % (0.0-2.0); EOSINOPHILS % (AUTO) 0.2 % (0.0-6.0); HEMATOCRIT 31 % (33-45); HEMOGLOBIN 10.3 g/dL (11.5-14.8); LYMPHOCYTES # (AUTO) 0.7 /CMM (0.8-4.8); LYMPHOCYTES % (AUTO) 5.8 % (20.0-44.0); MEAN CORPUSCULAR HGB CONC 34 g/dl (31.0-36.0); MEAN CORPUSCULAR VOLUME 119 fL (82-100); MONOCYTES # (AUTO) 0.4 /CMM (0.1-1.30); MONOCYTES % (AUTO) 3.7 % (2.0-12.0); NEUTROPHILS # (AUTO) 10.7 /CMM (1.8-8.9); PLATELET COUNT (AUTO) 275 /CMM (150-450); WHITE BLOOD COUNT (AUTO) 12.1 K/uL (4.3-11.0)
[2020-05-06] MEDS ORDERED: DICY10CA37 PO (20:13)
[2020-05-06] MEDS ORDERED: ONDA4TAB11 PO (20:13)
[2020-05-06] MEDS ORDERED: DICYCLOMINE HCL 10 MG CAPSULE PO ONE ×2 (20:23→20:30)
[2020-05-06] MEDS ORDERED: KETOROLAC TROMETHAMINE INJ 30 MG/ML VIAL ONE (20:23)
[2020-05-06 20:24] LABS: BAND % (MANUAL) 4 % (0.0-5.0); LYMPHOCYTES % (MANUAL) 4 % (16-48); MONOCYTES % (MANUAL) 4 % (0-11.0); NEUTROPHILS % (MANUAL) 88 (42-76)
[2020-05-06] MEDS ORDERED: KETOROLAC TROMETHAMINE INJ 30 MG/ML VIAL IV ONE (20:30)
[2020-05-06 20:38] LABS: COLOR,URINE BROWN (YELLOW)
[2020-05-06 20:43] LABS: BACTERIA,URINE 2+ /HPF (None Seen)
--- NOTE | 2020-05-06 21:10 | NUR ---
Patient discharged to home in stable condition. Written and verbal after care instructions given. Patient verbalizes understanding of instruction. IV removed. Catheter intact and site benign. Pressure and 4x4 applied to site. No bleeding noted.
[2020-05-06 21:11] VITALS: BP 134/78
== END 2020-05-06 21:12 | disposition home or self-care (01) ==
LOC: ER 17:45
DX: R10.13 Epigastric pain (principal); R11.2 Nausea with vomiting, unspecified; K70.9 Alcoholic liver disease, unspecified; F10.10 Alcohol abuse, uncomplicated; I10 Essential (primary) hypertension; F31.9 Bipolar disorder, unspecified; Y90.0 Blood alcohol level of less than 20 mg/100 ml; Z60.2 Problems related to living alone; Z79.899 Other long term (current) drug therapy
CPT/HCPCS: 36415; 76705; 80048; 80076; 80320; 81001; 83690; 84703; 85007; 85025; 96361; 96374; 96375; 99284; J1885; J2060; J2405; G0480

== ENCOUNTER 2020-05-10 17:08 | Emergency (ER) | payer OTHER ==
[~2020-05-10] VITALS: Ht 167.6 cm; Wt 137.9 kg
[~2020-05-10 17:08] MED LIST changes: +DICY10CA37 PO; +LEVO500T90 PO; +ONDA4TAB11 PO
--- NOTE | 2020-05-10 17:40 | NUR ---
AAOX3, [id number] ABD PAIN -N/V/D. PT WAS SEEN HERE LAST THURSDAY. PT REQUESTING STRONGER PAIN MEDS. RR is even and unlabored with nad noted. Skin and eyes were yellow in color. Provided warm blanket for comfort. Awaiting md for eval.
--- NOTE | 2020-05-10 17:40 | NUR ---
LUCIANO RAE AT BEDSIDE
[2020-05-10] MEDS ORDERED: ONDANSETRON HCL/PF 4 MG/2 ML VIAL IVP ONE (18:00)
[2020-05-10] MEDS ORDERED: IV NS 0.9% 1,000 ML BAG IV ONE (18:00)
[2020-05-10] MEDS ORDERED: MORPHINE SULFATE INJ 2 MG/ML DISP.SYRIN IV ONE (18:00)
[2020-05-10] MEDS ORDERED: MORPHINE SULFATE INJ 4 MG/ML DISP.SYRIN ONE (18:14)
[2020-05-10] MEDS ORDERED: ONDANSETRON HCL/PF 4 MG/2 ML VIAL ONE (18:14)
[2020-05-10 18:21] LABS: BASOPHILS # (AUTO) 0.2 /CMM (0.0-0.2); BASOPHILS % (AUTO) 1.6 % (0.0-2.0); EOSINOPHILS % (AUTO) 0.2 % (0.0-6.0); HEMATOCRIT 29 % (33-45); HEMOGLOBIN 9.7 g/dL (11.5-14.8); LYMPHOCYTES # (AUTO) 0.8 /CMM (0.8-4.8); LYMPHOCYTES % (AUTO) 6.2 % (20.0-44.0); MEAN CORPUSCULAR HGB CONC 34 g/dl (31.0-36.0); MEAN CORPUSCULAR VOLUME 122 fL (82-100); MONOCYTES # (AUTO) 0.5 /CMM (0.1-1.30); MONOCYTES % (AUTO) 3.9 % (2.0-12.0); NEUTROPHILS # (AUTO) 11.9 /CMM (1.8-8.9); NEUTROPHILS % (AUTO) 88.1 % (43.0-81.0); PLATELET COUNT (AUTO) 355 /CMM (150-450); RED BLOOD CELL COUNT(AUTO) 2.38 MIL/uL (4.0-5.2); WHITE BLOOD COUNT (AUTO) 13.5 K/uL (4.3-11.0)
[2020-05-10 18:43] LABS: ALBUMIN 1.5 g/dL (3.4-5.0); BILIRUBIN,DIRECT 19.6 mg/dL (0.0-0.2); BILIRUBIN,TOTAL 22.4 mg/dL (0.2-1.0); CALCIUM, SERUM 8.7 mg/dL (8.5-10.1); CREATININE 0.7 mg/dL (0.6-1.3); POTASSIUM 3.5 mmol/L (3.5-5.1); TOTAL PROTEIN, SERUM 5.9 g/dL (6.4-8.2)
[2020-05-10 18:54] LABS: LYMPHOCYTES % (MANUAL) 4 % (16-48); MONOCYTES % (MANUAL) 4 % (0-11.0); NEUTROPHILS % (MANUAL) 92 (42-76)
[2020-05-10] MEDS ORDERED: TRAM50TA2 PO (19:21)
--- NOTE | 2020-05-10 19:41 | NUR ---
CALLED [facility]: CONFIRM#[id number]
[2020-05-10 19:52] VITALS: BP 136/86
== END 2020-05-10 19:53 | disposition home or self-care (01) ==
LOC: ER 17:10
DX: K70.9 Alcoholic liver disease, unspecified (principal); D64.9 Anemia, unspecified; I10 Essential (primary) hypertension; G62.9 Polyneuropathy, unspecified; F31.9 Bipolar disorder, unspecified; Z60.2 Problems related to living alone; Z79.899 Other long term (current) drug therapy
CPT/HCPCS: 36415; 80048; 80076; 80320; 83690; 85007; 85025; 93005; 96361; 96374; 96375; 99284; J2270; J2405; G0480

== ENCOUNTER 2020-05-18 10:42 | Emergency (ER) | payer OTHER ==
[~2020-05-18] VITALS: Ht 167.6 cm; Wt 133.4 kg
[2020-05-18] MEDS ORDERED: ONDANSETRON HCL/PF 4 MG/2 ML VIAL IVP ONE (11:00)
[2020-05-18] MEDS ORDERED: MORPHINE SULFATE INJ 2 MG/ML DISP.SYRIN IV ONE (11:00)
[2020-05-18] MEDS ORDERED: MORPHINE SULFATE INJ 4 MG/ML DISP.SYRIN ONE (11:00)
[2020-05-18] MEDS ORDERED: ONDANSETRON HCL/PF 4 MG/2 ML VIAL ONE (11:00)
--- NOTE | 2020-05-18 11:29 | NUR ---
johanny from [facility]. to er bed 12. aaox4. not in resp distress. brought in for chronic abdominal pain. Pt reports she ran out of pain meds. suppose to see her primary yesterday but got cancelled d/t md had an emergency. pain 10/09. md was at the bedside for eval. orders received, noted and carried out.
[2020-05-18 11:31] LABS: BASOPHILS # (AUTO) 0.1 /CMM (0.0-0.2); BASOPHILS % (AUTO) 0.6 % (0.0-2.0); EOSINOPHILS % (AUTO) 0.9 % (0.0-6.0); HEMATOCRIT 33 % (33-45); LYMPHOCYTES % (AUTO) 8.4 % (20.0-44.0); MEAN CORPUSCULAR HGB CONC 34 g/dl (31.0-36.0); MEAN CORPUSCULAR VOLUME 119 fL (82-100); MONOCYTES # (AUTO) 0.6 /CMM (0.1-1.30); MONOCYTES % (AUTO) 4.6 % (2.0-12.0); NEUTROPHILS # (AUTO) 10.6 /CMM (1.8-8.9); NEUTROPHILS % (AUTO) 85.5 % (43.0-81.0); PLATELET COUNT (AUTO) 378 /CMM (150-450); RED BLOOD CELL COUNT(AUTO) 2.76 MIL/uL (4.0-5.2); WHITE BLOOD COUNT (AUTO) 12.3 K/uL (4.3-11.0)
[2020-05-18 11:37] LABS: CALCIUM, SERUM 8.6 mg/dL (8.5-10.1); CREATININE 0.6 mg/dL (0.6-1.3); POTASSIUM 3.1 mmol/L (3.5-5.1)
[2020-05-18 11:38] LABS: SERUM AMMONIA 31 umol/L (11-32)
[2020-05-18 11:48] LABS: ALBUMIN 1.7 g/dL (3.4-5.0); BILIRUBIN,DIRECT 20.4 mg/dL (0.0-0.2); BILIRUBIN,TOTAL 24.6 mg/dL (0.2-1.0); TOTAL PROTEIN, SERUM 6.4 g/dL (6.4-8.2)
[2020-05-18 11:57] LABS: BAND % (MANUAL) 2 % (0.0-5.0); EOSINOPHILS % (MANUAL) 1 % (0-4); LYMPHOCYTES % (MANUAL) 5 % (16-48); MONOCYTES % (MANUAL) 6 % (0-11.0); MYELOCYTES % 3 % (0-0); NEUTROPHILS % (MANUAL) 83 (42-76)
[2020-05-18 12:24] LABS: ALCOHOL, BLOOD < 3 mg/dL (0-0)
[2020-05-18] MEDS ORDERED: DOXYCYCLINE HYCLATE (100 MG) 100 MG TABLET ONE (12:58)
[2020-05-18] MEDS ORDERED: DOXYCYCLINE HYCLATE (100 MG) 100 MG TABLET PO ONE (13:00)
[2020-05-18] MEDS ORDERED: POTASSIUM CHLORIDE 20 MEQ TAB.PRT.SR PO ONE ×2 (13:00→13:02)
[2020-05-18] MEDS ORDERED: POTASSIUM CHLORIDE 10 MEQ TABLET.SA ONE (13:02)
[2020-05-18] MEDS ORDERED: TRAM50TA2 PO (13:07)
[2020-05-18] MEDS ORDERED: DOXY100C2 PO (13:07)
--- NOTE | 2020-05-18 13:08 | NUR ---
call the car called for transport back to [facility]
--- NOTE | 2020-05-18 13:16 | NUR ---
[id number] [id number] ETA TO FOLLOW
[2020-05-18 13:53] VITALS: BP 143/89
--- NOTE | 2020-05-18 13:53 | NUR ---
CONFECTIONERY COOKER WAS AT BEDSIDE. WAIVER ALREADY OBTAINED BY CONFECTIONERY COOKER
--- NOTE | 2020-05-18 13:53 | NUR ---
Patient discharged to home in stable condition. Written and verbal after care instructions given. Patient verbalizes understanding of instruction.IV removed. Catheter intact and site benign. Pressure and 4x4 applied to site. No bleeding noted.
--- NOTE | 2020-05-18 13:54 | NUR ---
PT MARKED FOR DISCHARGE AWAITING TRANSPORT
--- NOTE | 2020-05-18 14:14 | NUR ---
CALLED [facility] FOR TRANSPORT. ETA 30 MINUTES.
--- NOTE | 2020-05-18 14:30 | NUR ---
Social Service Consult: director of medical staff services consult requested for homelessness. Patient is a 49-year-old, female. SW met with the patient bedside in the emergency department. Patient is alert and oriented x4. Patient is calm and watching television. Patient was admitted to the hospital on 05/18/2020 for chronic abdominal pain. Patient stated that she currently lives at [facility] ([address] [place] [address]; [phone]), which is currently a homeless lodging. Patient stated that she experienced abdominal pain and was brought in by ambulance from [facility]. Patient stated that she has adequate support and mentioned her daughter, Natali and a few friends she speaks to. Patient reports that she been receiving Social Security Income. SW asked the patient about her history of drug use and the patient stated that she has no history of drug use. SW asked about any history of alcohol use and the patient stated, right before I came here, I had a bottle of vodka with juice. Patient stated that she drinks alcohol every day but was unable to provide information on the duration of her alcohol use other than stating, for years. Patient stated she has a psychiatric diagnosis of Bipolar I. SW asked the patient if she has been taking psychiatric medication and the patient stated she used to take medication but stopped out of concern that the medication would affect her liver. Patient denies any current hallucinations and delusions. Patient denies any current thoughts of suicide or homicide. SW discussed homeless resources with the patient. Patient stated that she is familiar with the resources and declined the resources at this time. SW discussed addiction resources (for drugs and alcohol) with the patient with regards to her alcohol use. Patient thanked this SW and declined the packet stating that she was aware of the resources. Patient will be returning to her prior living arrangements at [facility]. Patient signed the homeless waiver. SW filed the waiver in the patients chart.
--- NOTE | 2020-05-18 15:01 | NUR ---
[facility] AT BEDSIDE [facility]. REPORT GIVEN. PT IS IN STABLE CONDITION FOR TRANSPORT
--- NOTE | 2020-05-18 15:10 | NUR ---
Patient given written and verbal discharge instructions. Patient verbalizes understanding of instructions. Patient is ambulatory with steady gait. Refuses offer of alf placement. Patient given list of available shelters in surrounding area. patient transferred back to [facility] in stable condition.
[2020-05-28] MEDS ORDERED: PANT40TA2 PO (15:35)
[2020-05-28] MEDS ORDERED: SIMV10TA98 PO (15:36)
[2020-05-28] MEDS ORDERED: ONDA4TAB5 PO (15:39)
== END 2020-05-18 15:10 | disposition home or self-care (01) ==
LOC: ER 10:44
DX: G89.29 Other chronic pain (principal); R10.84 Generalized abdominal pain; K70.9 Alcoholic liver disease, unspecified; E87.6 Hypokalemia; J18.9 Pneumonia, unspecified organism; I10 Essential (primary) hypertension; G62.9 Polyneuropathy, unspecified; Z60.2 Problems related to living alone; Z79.899 Other long term (current) drug therapy
CPT/HCPCS: 36415; 71045; 80048; 80076; 80320; 82140; 83690; 85007; 85025; 96374; 96375; 99284; J2270; J2405; G0480

== ENCOUNTER 2020-05-23 12:48 | Emergency (ER) | payer OTHER ==
[~2020-05-23] VITALS: Ht 167.6 cm; Wt 138.3 kg
[~2020-05-23 12:48] MED LIST changes: +DOXY100C2 PO
--- NOTE | 2020-05-23 13:18 | NUR ---
DIFFUSE ABDOMINAL PAIN, NAUSEA AND VOMITING SINCE LAST NIGHT. PATIENT A/OX4, BREATHING EVEN AND UNLABORED, NO SOB NOTED, NEEDS ATTENDED. EYES ARE JAUNDICED. KEPT COMFORTABLE.
[2020-05-23 13:41] LABS: BASOPHILS # (AUTO) 0.1 /CMM (0.0-0.2); BASOPHILS % (AUTO) 0.6 % (0.0-2.0); EOSINOPHILS % (AUTO) 0.8 % (0.0-6.0); HEMATOCRIT 31 % (33-45); HEMOGLOBIN 10.5 g/dL (11.5-14.8); LYMPHOCYTES # (AUTO) 1.1 /CMM (0.8-4.8); LYMPHOCYTES % (AUTO) 9.2 % (20.0-44.0); MEAN CORPUSCULAR HGB CONC 34 g/dl (31.0-36.0); MEAN CORPUSCULAR VOLUME 120 fL (82-100); MONOCYTES # (AUTO) 0.6 /CMM (0.1-1.30); MONOCYTES % (AUTO) 4.8 % (2.0-12.0); NEUTROPHILS # (AUTO) 9.9 /CMM (1.8-8.9); NEUTROPHILS % (AUTO) 84.6 % (43.0-81.0); PLATELET COUNT (AUTO) 356 /CMM (150-450); RED BLOOD CELL COUNT(AUTO) 2.58 MIL/uL (4.0-5.2); WHITE BLOOD COUNT (AUTO) 11.6 K/uL (4.3-11.0)
[2020-05-23 13:44] LABS: CALCIUM, SERUM 7.3 mg/dL (8.5-10.1); CREATININE 0.7 mg/dL (0.6-1.3); POTASSIUM 3.3 mmol/L (3.5-5.1)
[2020-05-23 13:50] LABS: ALBUMIN 1.8 g/dL (3.4-5.0); BILIRUBIN,DIRECT 12.6 mg/dL (0.0-0.2); BILIRUBIN,TOTAL 15.3 mg/dL (0.2-1.0); TOTAL PROTEIN, SERUM 6.5 g/dL (6.4-8.2)
[2020-05-23] MEDS ORDERED: ONDANSETRON HCL/PF 4 MG/2 ML VIAL ONE (14:16)
[2020-05-23] MEDS ORDERED: MORPHINE SULFATE INJ 2 MG/ML DISP.SYRIN ONE (14:16)
--- NOTE | 2020-05-23 14:25 | NUR ---
US TECH AT BEDSIDE.
[2020-05-23] MEDS ORDERED: ONDANSETRON HCL/PF 4 MG/2 ML VIAL IVP ONE (14:30)
[2020-05-23] MEDS ORDERED: IV NS 0.9% 500 ML BAG IV ONE (14:30)
[2020-05-23] MEDS ORDERED: MORPHINE SULFATE INJ 2 MG/ML DISP.SYRIN IV ONE (14:30)
[2020-05-23 14:31] LABS: EOSINOPHILS % (MANUAL) 2 % (0-4); LYMPHOCYTES % (MANUAL) 10 % (16-48); MONOCYTES % (MANUAL) 6 % (0-11.0); NEUTROPHILS % (MANUAL) 82 (42-76)
[2020-05-23] MEDS ORDERED: AMOX-430 PO (15:25)
[2020-05-23] MEDS ORDERED: AZIT250T PO (15:27)
--- NOTE | 2020-05-23 15:43 | NUR ---
PATIENT IS MEDICALLY CLEARED. WILL CALL FOR TRANSPORTATION BACK TO THE FACILITY.
--- NOTE | 2020-05-23 17:03 | NUR ---
No episode of nausea and vomiting at this time. IV removed. Catheter intact and site benign. Pressure and 4x4 applied to site. No bleeding noted.Patient discharged to home in stable condition. Written and verbal after care instructions given. Patient verbalizes understanding of instruction. Taxi will be called for patient to be transferred back to [facility].
[2020-05-23 17:18] VITALS: BP 144/96
== END 2020-05-23 17:18 | disposition home or self-care (01) ==
LOC: ER 12:52
DX: R11.2 Nausea with vomiting, unspecified (principal); K70.9 Alcoholic liver disease, unspecified; F10.10 Alcohol abuse, uncomplicated; I10 Essential (primary) hypertension; F31.9 Bipolar disorder, unspecified; Y90.9 Presence of alcohol in blood, level not specified; Z60.2 Problems related to living alone; Z79.899 Other long term (current) drug therapy
CPT/HCPCS: 36415; 76705; 80048; 80076; 83690; 85007; 85025; 96374; 96375; 99284; J2270; J2405; J7040

== ENCOUNTER 2020-05-26 10:26 | Inpatient (IN) | payer OTHER ==
[~2020-05-26] VITALS: Ht 170.2 cm; Wt 117.5 kg
[~2020-05-26 10:26] MED LIST changes: +AMOX-430 PO; +AZIT250T PO
--- NOTE | 2020-05-26 10:40 | NUR ---
ABEBA RA 878 "Abdominal Pain/Nausea/vomiting. Was seen here multiple times for same last time thursday. Hx Alcohol abuse". On room air, breathing evenly and unlabored. Connected to the monitor and pulse ox. Kept comfortable, will continue to monitor accordingly.
[2020-05-26 10:53] LABS: BASOPHILS # (AUTO) 0.1 /CMM (0.0-0.2); HEMATOCRIT 32 % (33-45); MEAN CORPUSCULAR VOLUME 119 fL (82-100)
[2020-05-26] MEDS ORDERED: ONDANSETRON HCL/PF 4 MG/2 ML VIAL ONE (10:57)
[2020-05-26 10:59] LABS: HEMOGLOBIN 10.9 g/dL (11.5-14.8); LYMPHOCYTES # (AUTO) 1.3 /CMM (0.8-4.8); LYMPHOCYTES % (AUTO) 12.1 % (20.0-44.0); MEAN CORPUSCULAR HGB CONC 34 g/dl (31.0-36.0); MONOCYTES # (AUTO) 0.6 /CMM (0.1-1.30); MONOCYTES % (AUTO) 5.6 % (2.0-12.0); NEUTROPHILS # (AUTO) 8.5 /CMM (1.8-8.9); NEUTROPHILS % (AUTO) 80.3 % (43.0-81.0); PLATELET COUNT (AUTO) 321 /CMM (150-450); RED BLOOD CELL COUNT(AUTO) 2.69 MIL/uL (4.0-5.2); WHITE BLOOD COUNT (AUTO) 10.6 K/uL (4.3-11.0)
[2020-05-26] MEDS ORDERED: IV NS 0.9% 1,000 ML BAG IV ONE (11:00)
[2020-05-26] MEDS ORDERED: ONDANSETRON HCL/PF 4 MG/2 ML VIAL IVP ONE (11:00)
[2020-05-26 11:05] LABS: CALCIUM, SERUM 7.8 mg/dL (8.5-10.1); CREATININE 0.6 mg/dL (0.6-1.3); POTASSIUM 3.2 mmol/L (3.5-5.1)
[2020-05-26 11:11] LABS: BILIRUBIN,DIRECT 11.1 mg/dL (0.0-0.2); BILIRUBIN,TOTAL 13.3 mg/dL (0.2-1.0); TOTAL PROTEIN, SERUM 6.9 g/dL (6.4-8.2)
[2020-05-26 11:13] LABS: BILIRUBIN,URINE LARGE (NEGATIVE); COLOR,URINE DARK YELLOW (YELLOW); LEUKOCYTE ESTERASE ,URINE Negative (NEGATIVE); NITRITE, URINE Negative (NEGATIVE); PROTEIN,URINE 100 mg/dl (NEGATIVE); UGLUCOSE 100 MG/DL mg/dL (NEGATIVE)
--- NOTE | 2020-05-26 11:13 | NUR ---
MOVE SHEET SUBMITTED AND CALLED FOR MS BED.
--- NOTE | 2020-05-26 11:17 | NUR ---
covid swab collected and sent to lab
[2020-05-26 11:34] LABS: BACTERIA,URINE Rare /HPF (None Seen); RBC,URINE NONE SEEN /HPF (0-2); SQUAMOUS EPITHELIAL CELL,UR Few /HPF (None Seen); WBC,URINE NONE SEEN /HPF (0-3)
--- NOTE | 2020-05-26 12:04 | NUR ---
PT VERBALIZED THAT SHE IS FEELING ANXIOUS BECAUSE OF HER LIVER AND REQUESTING TO HAVE AN ATIVAN. MD MADE AWARE AND VERBAL ORDER RECEIVED TO GIVEN ATIVAN 1MG PO X 1 DOSE. NOTED AND CARRIED OUT.
[2020-05-26] MEDS ORDERED: LORAZEPAM 1 MG TABLET ONE (12:06)
--- NOTE | 2020-05-26 12:12 | NUR ---
Clarissa spann in [facility] - 05/26/20 at 1213 by CAROL MOVE SHEET SUBMITTED AND CALLED FOR MS BED.
--- NOTE | 2020-05-26 12:13 | NUR ---
LAB CALLED CHANDAN VELEZ NEGATIVE (-)
[2020-05-26] MEDS ORDERED: POTASSIUM CL. PREMIX PERIPHER. 100 ML ONE (12:14)
[2020-05-26] MEDS: POTASSIUM CL. PREMIX PERIPHER. 50 ML IV SCH ×2 (12:19→13:30)
[2020-05-26] MEDS ORDERED: LORAZEPAM 1 MG TABLET PO ONE (12:30)
[2020-05-26 12:42] LABS: EOSINOPHILS % (MANUAL) 1 % (0-4); LYMPHOCYTES % (MANUAL) 10 % (16-48); MONOCYTES % (MANUAL) 3 % (0-11.0); NEUTROPHILS % (MANUAL) 86 (42-76)
--- NOTE | 2020-05-26 13:51 | NUR ---
Pt assigend to MS 101
--- NOTE | 2020-05-26 14:05 | NUR ---
REPORT GIVEN TO RUBEN CARLTON FOR MARIAELENA.
--- NOTE | 2020-05-26 14:25 | NUR ---
Patient admitted fron ER, received report by Jv MIRANDA.
--- NOTE | 2020-05-26 14:27 | NUR ---
pt transported to unit on [facility] with emt and rn at bedside w/ acls protocol. nad noted during transport. pt ambulated from rney to bed on steady gait w/o assist
[2020-05-26] MEDS ORDERED: Z GUARD REMEDY 2 OZ OINT TP PRN (15:00)
[2020-05-26] MEDS ORDERED: MAGNESIUM HYDROXIDE 30 ML UDC PO PRN (15:00)
[2020-05-26] MEDS ORDERED: ACETAMINOPHEN 325 MG TABLET PO PRN (15:00)
[2020-05-26] MEDS ORDERED: MAG HYDROX/AL HYDROX/SIMETH 30 ML UDC PO PRN (15:00)
[2020-05-26] MEDS ORDERED: ZOLPIDEM TARTRATE 5 MG TABLET PO PRN (15:00)
[2020-05-26] MEDS: IV D5/0.45 NACL 1,000 ML IV PRN (15:36)
--- NOTE | 2020-05-26 18:20 | NUR ---
RN Closing note Patient in bed resting, keep on NPO for ABD pain. Respiratory even and unlabored on room air O2sat 98%. Skin is warm to touch, keep clean/dry, intact IV site on right AC 18g, running D5 1/2 NS at 125ml. Kept elevated HOB for ensure airway and aspiration precaution, also lowest bed position for safety. Call light within reach, will endorse manufacturing shift supervisor.
[2020-05-26 20:00] VITALS: BP 156/90
[2020-05-26] MEDS: HYDROCODONE/APAP 5/325MG TABLET PO PRN (20:55)
[2020-05-26] MEDS: ONDANSETRON HCL/PF 4 MG/2 ML VIAL IVP PRN (22:46)
[2020-05-27 04:00] VITALS: BP 149/77
[2020-05-27] MEDS: ONDANSETRON HCL/PF 4 MG/2 ML VIAL IVP PRN ×3 (05:41→21:48)
[2020-05-27] MEDS: HYDROCODONE/APAP 5/325MG TABLET PO PRN ×3 (05:42→19:50)
[2020-05-27 06:12] LABS: BASOPHILS # (AUTO) 0.1 /CMM (0.0-0.2); BASOPHILS % (AUTO) 0.6 % (0.0-2.0); EOSINOPHILS % (AUTO) 1.1 % (0.0-6.0); HEMATOCRIT 28 % (33-45); HEMOGLOBIN 9.6 g/dL (11.5-14.8); LYMPHOCYTES # (AUTO) 1.2 /CMM (0.8-4.8); LYMPHOCYTES % (AUTO) 13.2 % (20.0-44.0); MEAN CORPUSCULAR HGB CONC 34 g/dl (31.0-36.0); MEAN CORPUSCULAR VOLUME 118 fL (82-100); MONOCYTES # (AUTO) 0.5 /CMM (0.1-1.30); MONOCYTES % (AUTO) 5.8 % (2.0-12.0); NEUTROPHILS # (AUTO) 7.3 /CMM (1.8-8.9); NEUTROPHILS % (AUTO) 79.3 % (43.0-81.0); PLATELET COUNT (AUTO) 260 /CMM (150-450); RED BLOOD CELL COUNT(AUTO) 2.39 MIL/uL (4.0-5.2); WHITE BLOOD COUNT (AUTO) 9.2 K/uL (4.3-11.0)
--- NOTE | 2020-05-27 06:27 | NUR ---
MS RN NOTES AWAKE & RESPONSIVE. NOT IN ANY DISTRESS. NO SOB NOTED. DENIES ANY PAIN OR DISCOMFORT AT THIS TIME. WITH IVF INFUSING WELL. MONITORED ACCORDINGLY. CALL LIGHT WITHIN REACH. BED IN LOWEST POSITION. SR UP X 2 FOR SAFETY. WILL ENDORSE TO NEXT SHIFT.
--- NOTE | 2020-05-27 07:15 | NUR ---
M/S RN OPENING NOTES RECEIVED PT ON BED, AOOX4, RESPONSIVE TO ATIMULI. ON NPO DUE TO ABD PAIN, DENIES PAIN AT THIS MOMENT. RESPIRATION EVEN AND UNLABORED WITH NO ACUTE RESPIRATORY DISTRESS. ABD NON TENDER TO TOUCH. SKIN WARM TO TOUCH AND DRY. ON IV AT RIGHT AC PERIPHERAL LINE PATENT IN FLUSHING, NO S/SX OF INFILTRATION, RUNNING D5 1/2 NS @ 125 ML/HR. CALL LIGHT WITHIN REACH, BED IN LOW LOCKED POSITION, SR X2 UP FOR SAFETY. WILL CONTINUE TO MONITOR CARE.
[2020-05-27] MEDS: PANTOPRAZOLE 40 MG TABLET.DR PO SCH (07:27)
[2020-05-27 07:28] LABS: ALBUMIN 1.7 g/dL (3.4-5.0); BILIRUBIN,DIRECT 8.7 mg/dL (0.0-0.2); BILIRUBIN,TOTAL 10.7 mg/dL (0.2-1.0); CALCIUM, SERUM 8.4 mg/dL (8.5-10.1); CREATININE 0.6 mg/dL (0.6-1.3); PHOSPHORUS 2.7 mg/dL (2.5-4.9); POTASSIUM 3.4 mmol/L (3.5-5.1); TOTAL PROTEIN, SERUM 6.2 g/dL (6.4-8.2)
[2020-05-27 08:00] VITALS: BP 136/94
[2020-05-27 08:14] LABS: MAGNESIUM 2.2 mg/dL (1.8-2.4)
[2020-05-27 08:30] VITALS: BP 136/94
[2020-05-27] MEDS: POTASSIUM CL. PREMIX PERIPHER. 50 ML IV SCH ×2 (09:49→10:49)
[2020-05-27] MEDS: IV D5/0.45 NACL 1,000 ML IV PRN ×2 (11:23→22:53)
--- NOTE | 2020-05-27 15:55 | NUR ---
M/S RN NOTES PT SEEN AND EVALUATED BY DR. BANUELOS. NEW ORDER OBTAIN TO ADVANCE DIET TOLERATED, START WITH CLEAR LIQUID DIET. IF TOLERATED, DC TOMORROW. ORDER READ BACK NOTED AND CARRIED OUT. PT AWARE
[2020-05-27 16:00] VITALS: BP 166/93
[2020-05-27 16:15] VITALS: BP_SYST 136; BP_SYST 166; BP_DIAS 93; BP_DIAS 94
--- NOTE | 2020-05-27 18:01 | NUR ---
M/S RN NOTES PT TOLERATED CLEAR LIQUID DIET. NO VOMITING/EMESIS NOTED. NO DIARRHEA NOTED. PT STATED "I EASILY GET FULL", PT HAS HISTORY OF GASTRIC BYPASS 2007. FOOD ADVANCE TO FULL LIQUID PER ORDER. WILL CONT TO MONITOR.
--- NOTE | 2020-05-27 18:31 | NUR ---
M/S RN CLOSING NOTES PT AAOX4, NAD, NO SOB NOTED, NEGATIVE COVID PCR, 100% SPO2 IN RA. DENIES PAIN. BM X2 TODAY. TOLERATED CLEAR LIQUID DIET, SFF, WILL ADVANCE DIET IN AM. NO NEW OPEN SKIN BREAKDOWN. IV SITE AT R AC, PATENT IN FLUSHING, NO S/SX OF INFILTRATION, RUNNING D5 1/2NS AT 125 ML/HR. ALL CONCERNS AND NEEDS ATTENDED. CALL LIGHT WITHIN REACHED, BED IN LOW LOCKED POSITION, SRX2 UP FOR SAFETY. ENDORSED CARE TO NEXT SHIFT.
--- NOTE | 2020-05-27 19:00 | NUR ---
RN OPENING NOTE RECEIVED PATIENT IN BED RESTING ALERT ORIENTED X4 VERBALLY RESPONSIVE ON ROOM AIR O2:100% IV SITE IS ON RIGHT AC INTACT PATIENT IV HYDRATION D51/2NS RUNNING 125CC/HR,ON CLEAR DIET,AMBULATORY CONTINENT TO BOWEL/BLADDER BED IN LOW POSITION AND LOCKED BED ALARM IS ON SAFETY MEASURE IMPLEMENT CONTINUE TO MONITOR.
[2020-05-28] VITALS: BP 115/55
[2020-05-28] MEDS: HYDROCODONE/APAP 5/325MG TABLET PO PRN ×3 (04:32→15:43)
[2020-05-28] MEDS: ONDANSETRON HCL/PF 4 MG/2 ML VIAL IVP PRN ×2 (04:32→10:34)
[2020-05-28 06:29] LABS: BASOPHILS # (AUTO) 0.1 /CMM (0.0-0.2); BASOPHILS % (AUTO) 0.7 % (0.0-2.0); EOSINOPHILS % (AUTO) 1.3 % (0.0-6.0); HEMATOCRIT 28 % (33-45); HEMOGLOBIN 9.7 g/dL (11.5-14.8); LYMPHOCYTES # (AUTO) 1.4 /CMM (0.8-4.8); MEAN CORPUSCULAR HGB CONC 34 g/dl (31.0-36.0); MEAN CORPUSCULAR VOLUME 118 fL (82-100); MONOCYTES # (AUTO) 0.6 /CMM (0.1-1.30); MONOCYTES % (AUTO) 6.8 % (2.0-12.0); NEUTROPHILS % (AUTO) 76.2 % (43.0-81.0); PLATELET COUNT (AUTO) 257 /CMM (150-450); RED BLOOD CELL COUNT(AUTO) 2.42 MIL/uL (4.0-5.2); WHITE BLOOD COUNT (AUTO) 9.2 K/uL (4.3-11.0)
--- NOTE | 2020-05-28 06:39 | NUR ---
RN CLOSING NOTE PATIENT REMAINS ON ALERT ORIENTED X4 VERBALLY RESPONSIVE ON ROOM AIR O2:100% IV SITE IS ON RIGHT AC INTACT PATIENT IV HYDRATION D51/2NS RUNNING 125CC/HR,ALL DUE MEDS GIVEN MD ORDERED KEPT CLEAN AND DRY ALL THE TIME,KEPT COMFORTABLE,KEPT CALL LIGHT WITHIN REACH,ENDORSE NEXT COMING SHIFT FOR CONTINUATION OF CARE.
[2020-05-28 06:48] LABS: CALCIUM, SERUM 7.9 mg/dL (8.5-10.1); CREATININE 0.6 mg/dL (0.6-1.3); PHOSPHORUS 2.4 mg/dL (2.5-4.9); POTASSIUM 3.3 mmol/L (3.5-5.1)
[2020-05-28 08:00] VITALS: BP 144/86
--- NOTE | 2020-05-28 08:00 | NUR ---
PATIENT RECEIVED IN BED ON ROOM AIR, ALERT AND ORIENTED X 4. PATIENT MEDSURG STATUS. PT IS AMBULATORY INDEPENDENT. PATIENT ON A CLEAR LIQUID DIET, ADVANCED TO FULL LIQUID DIET. PATIENT EXPERIENCING NAUSEA, ZOFRAN NOT DUE YET. PATIENT HAS RAC 18 RUNNING D5 1/2 NS AT 125 ML/HR. NO SIGNS OF INFECTION OR INFILTRATION. ALL SAFETY MEASURES IN PLACE. WILL CONTINUE TO MONITOR
[2020-05-28] MEDS: PANTOPRAZOLE 40 MG TABLET.DR PO SCH (08:30)
[2020-05-28] MEDS ORDERED: POTASSIUM CHLORIDE 20 MEQ TAB.PRT.SR PO SCH (11:00)
[2020-05-28] MEDS ORDERED: K PHOS NEUTRAL 250 MG TABLET PO ONE (11:30)
[2020-05-28] MEDS ORDERED: PANT40TA2 PO (15:35)
[2020-05-28] MEDS ORDERED: SIMV10TA98 PO (15:36)
[2020-05-28] MEDS ORDERED: ONDA4TAB5 PO (15:39)
[2020-05-28 16:00] VITALS: BP 169/97
--- NOTE | 2020-05-28 17:00 | NUR ---
PATIENT TO BE DISCHARGED AROUND 1700, LAST SET OF VITALS BP169/97. PER MED RECS, PATIENT HAS HOME MED OF ATENOLOL 25 MG PO. DO LAKISHA NOTIFIED, ORDERS ONE TIME DOSE OF ATENOLOL.
--- NOTE | 2020-05-28 17:15 | NUR ---
PATIENT DISCHARGED TO NURSING HOME VIA AMBULANCE. ALL BELONGINGS SIGNED AND RETURNED TO PATIENT. ID [id number] AND IV SITES REMOVED. DC PAPERWORK SIGNED BY PATIENT, GIVEN TO PATIENT IN FOLDER. PATIENT VERBALIZES UNDERSTANDING OF DC PAPERWORK. REPORT GIVEN TO TRANSPORT.
[2020-05-28 17:20] VITALS: BP 169/97
[2020-05-28] MEDS ORDERED: ATENOLOL 25 MG TABLET PO ONE (17:20)
== END 2020-05-28 17:54 | disposition home or self-care (01) | DRG 280 ==
LOC: ER 10:28 → MEDSG1 13:58
PROVIDERS: ADMIT Student in an Organized Health Care Education/Training Program; ATTEND Student in an Organized Health Care Education/Training Program
DX: K70.9 Alcoholic liver disease, unspecified (principal); E87.1 Hypo-osmolality and hyponatremia; E87.6 Hypokalemia; E43 Unspecified severe protein-calorie malnutrition; Z59.0 Homelessness; D64.9 Anemia, unspecified; Z20.822 Contact with and (suspected) exposure to COVID-19; G62.9 Polyneuropathy, unspecified; I10 Essential (primary) hypertension; Z79.899 Other long term (current) drug therapy; Z98.84 Bariatric surgery status; F31.9 Bipolar disorder, unspecified; G89.29 Other chronic pain
CPT/HCPCS: 36415; 80048-TC; 80061-TC; 80076-TC; 81001; 82140-TC; 83690-TC; 83735-TC; 84100-TC; 84703-TC; 85025-TC; 85610-TC; 85730-TC; 87081-TC; C9803; G0378; J2405; J3480; J3490; J7030; U0003

== ENCOUNTER 2020-05-29 17:02 | Emergency (ER) | payer OTHER ==
[~2020-05-29] VITALS: Ht 170.2 cm; Wt 136.5 kg
[~2020-05-29 17:02] MED LIST changes: +ONDA4TAB5 PO; +PANT40TA2 PO; +SIMV10TA98 PO
--- NOTE | 2020-05-29 17:23 | NUR ---
BIB [facility] FROM [facility],PERSISTENT ABDOMINAL PAIN, WAS DISCHARGE YESTERDAY AFTER 4 DAYS OF CONFINEMENT UPSTAIRS. PT AAOX4, VSS. RR EVEN & UNLABORED. DENIES CP, SOB, DIZZINESS, N/V AT THIS TIME. PT SEEN & EVAL'D BY DR. OBREGON. WILL CONT TO MONITOR.
[2020-05-29 17:38] LABS: BASOPHILS # (AUTO) 0.1 /CMM (0.0-0.2); BASOPHILS % (AUTO) 0.6 % (0.0-2.0); EOSINOPHILS % (AUTO) 0.6 % (0.0-6.0); HEMATOCRIT 32 % (33-45); HEMOGLOBIN 10.9 g/dL (11.5-14.8); LYMPHOCYTES # (AUTO) 1.4 /CMM (0.8-4.8); LYMPHOCYTES % (AUTO) 12.7 % (20.0-44.0); MEAN CORPUSCULAR HGB CONC 34 g/dl (31.0-36.0); MEAN CORPUSCULAR VOLUME 117 fL (82-100); MONOCYTES # (AUTO) 0.5 /CMM (0.1-1.30); MONOCYTES % (AUTO) 4.6 % (2.0-12.0); NEUTROPHILS # (AUTO) 9.1 /CMM (1.8-8.9); NEUTROPHILS % (AUTO) 81.5 % (43.0-81.0); PLATELET COUNT (AUTO) 308 /CMM (150-450); RED BLOOD CELL COUNT(AUTO) 2.77 MIL/uL (4.0-5.2); WHITE BLOOD COUNT (AUTO) 11.1 K/uL (4.3-11.0)
[2020-05-29 18:15] LABS: CALCIUM, SERUM 8.4 mg/dL (8.5-10.1); CREATININE 0.7 mg/dL (0.6-1.3); POTASSIUM 3.4 mmol/L (3.5-5.1)
[2020-05-29 18:42] LABS: BILIRUBIN,DIRECT 7.8 mg/dL (0.0-0.2); BILIRUBIN,TOTAL 9.6 mg/dL (0.2-1.0)
[2020-05-29 19:00] LABS: ALCOHOL, BLOOD < 3 mg/dL (0-0)
[2020-05-29] MEDS ORDERED: MORPHINE SULFATE INJ 2 MG/ML DISP.SYRIN ONE (19:27)
[2020-05-29] MEDS ORDERED: ONDANSETRON 4 MG TAB.RAPDIS ONE (19:27)
[2020-05-29] MEDS ORDERED: MORPHINE SULFATE INJ 2 MG/ML DISP.SYRIN IV ONE (19:30)
[2020-05-29] MEDS ORDERED: ONDANSETRON HCL/PF - ER 4 MG/2 ML VIAL IV ONE (19:30)
[2020-05-29] MEDS ORDERED: ONDANSETRON 4 MG TAB.RAPDIS SL ONE (19:30)
[2020-05-29] MEDS ORDERED: MORPHINE SULFATE INJ 2 MG/ML DISP.SYRIN IM ONE (19:30)
[2020-05-29 19:44] VITALS: BP 135/81
--- NOTE | 2020-05-29 19:44 | NUR ---
Patient discharged to home in stable condition. Written and verbal after care instructions given. Patient verbalizes understanding of instruction. Pt ambulated out of ED. VSS.
[2020-05-29] MEDS ORDERED: POTASSIUM CHLORIDE 20 MEQ TAB.PRT.SR PO ONE (20:00)
== END 2020-05-29 19:47 | disposition home or self-care (01) ==
LOC: ER 17:02
DX: G89.29 Other chronic pain (principal); R10.9 Unspecified abdominal pain; E87.6 Hypokalemia; D64.9 Anemia, unspecified; I10 Essential (primary) hypertension; G62.9 Polyneuropathy, unspecified; F31.9 Bipolar disorder, unspecified; E78.5 Hyperlipidemia, unspecified; Z98.890 Other specified postprocedural states; Z60.2 Problems related to living alone; Z79.899 Other long term (current) drug therapy
CPT/HCPCS: 36415; 80048; 80076; 80320; 83690; 84702; 85025; 85730; 96372; 99283; J2270; J2405; Q0162; G0480